=== PATIENT | female | born 1955 | race Caucasian/White ===

== ENCOUNTER → 2016-11-22 | Outpatient (CLI) | payer MEDICARE ==
--- NOTE | 2016-11-22 10:15 | FL ---
EXAMINATION TYPE: FL barium swallow DATE OF EXAM ORDERED: 11/22/2016 10:07 AM HISTORY: Remote lap band. COMPARISON: None. FINDINGS: The patient swallowed barium of these. There is prompt egress of barium from esophagus int o the stomach without significant holdup. There is no evidence of prolapse. IMPRESSION: STATUS POST LAP BAND.
[2016-11-22 10:33] VITALS: BP 159/98; PULSE 94; TEMP 97.9; BMI 35.4
--- NOTE | 2016-11-22 11:48 | P.HPBAR ---
Bariatric H&P - History & Physicial H&P Date: 11/22/16 History & Physicial: Visit/CC: follow up visit Patient initial contact: Initial weight: Initial weight in pounds: Height: 5 ft 5 in Initial BMI: Last weight: Current weight: 96.661 kg Current weight in pounds: 213.10 Current BMI: 35.4 [place] body weight (based on NIH guidelines): 56.699 kg Excess body weight loss: The patient is a 61 year-old F who presents for Bariatric Assessment. Patient presents today for follow-up. She's not been seen for 7 years. He has had chronic complaints of epigastric pain and right upper quadrant pain which radiates to her back. She has no fluid in her LAP-BAND. She's not had any significant weight loss. She was then removed. Past Medical History Past Medical History: COPD, CVA/TIA, Fibromyalgia, Hyperlipidemia, Hypertension , Seizure Disorder History of Any Multi-Drug Resistant Organisms: None Reported Past Surgical History: Adenoidectomy, Bariatric Surgery, Hysterectomy, Tonsillectomy Additional Past Surgical History / Comment(s): lap band 2010 Past Anesthesia/Blood Transfusion Reactions: No Reported Reaction Past Psychological History: No Psychological Hx Reported Smoking Status: Former smoker Additional Past Alcohol Use History / Comment(s): quit smoking three months ago Past Drug Use History: None Reported Surgical - Exam Vital Signs Temp Pulse BP 97.9 F 94 159/98 11/22/16 10:24 11/22/16 10:24 11/22/16 10:24 - General well developed, no distress - Eyes PERRL - ENT normal pinna - Neck no masses - Respiratory normal expansion - Cardiovascular Rhythm: regular - Abdomen Abdomen: soft, non tender Bariatric Assessment & Plan Plan: The patient LAP-BAND is empty. Her esophagram shows no evidence of obstruction to contrast. Patient will have a HIDA scan performed. She'll also be scheduled for EGD. Bariatric Checklist Checklist: Plan: Checklist: EGD: 1. Hiatal hernia: 2. H. Pylori: HgbA1c: Vitamin D: Smoking: Former smoker Primary care physician referral: dr joshua Psychiatry clearance: Cardiology clearance: Sleep study: Diet journal: VTE risk score: VTE risk level: Rehab needs at discharge:
== END | disposition home or self-care (01) ==
LOC: BARWHC3 09:08
PROVIDERS: ATTEND Surgery
DX: Z48.815 Encounter for surgical aftercare following surgery on the digestive system (principal); R13.10 Dysphagia, unspecified; Z87.891 Personal history of nicotine dependence; Z98.84 Bariatric surgery status
CPT/HCPCS: 74220; G0463; 99201; 99211

== ENCOUNTER → 2016-11-23 | Outpatient (CLI) | payer MEDICARE ==
--- NOTE | 2016-11-24 07:51 | NM ---
EXAMINATION TYPE: NM hepatobiliary w EF DATE OF EXAM: 11/23/2016 COMPARISON: NONE HISTORY: Gastroesophageal reflux disease and abdominal pain TECHNIQUE: After the intravenous administration of 5.4 mCi Tc 99m Mebrofenin hepatobiliary scintigrap hy is performed. Immediate images post injection. FINDINGS: There is satisfactory initial accumulation of tracer by the liver. The gallbladder is visualized wit hin 14 minutes. The small bowel activity is noted within 6 minutes. At one hour 8 ounces of oral en sure plus is given to mimic CCK and gallbladder ejection fraction is calculated at 35 %, at the level end of normal. Therefore there is no scintigraphic evidence of cystic or common bile duct obstructi on to suggest acute cholecystitis or gallbladder dyskinesia. IMPRESSION: Borderline normal gallbladder ejection fraction
== END | disposition home or self-care (01) ==
LOC: RADNMMAIN 15:10
PROVIDERS: ATTEND Surgery
DX: R10.9 Unspecified abdominal pain (principal)
CPT/HCPCS: 78226; A9537

== ENCOUNTER 2016-11-25 11:00 | Day surgery (SDC) | payer MEDICARE ==
[2016-11-24 10:29] VITALS: BMI 35.4
[~2016-11-25 11:00] MED LIST: LACTATED RINGERS 1,000 ML IV SCH
[2016-11-25] MEDS ORDERED: MIDAZOLAM 2 MG/2 ML VIAL ONE (11:32)
[2016-11-25] MEDS ORDERED: LIDOCAINE 1% INJ 10MG/ML (20 ML MDV) ONE (11:32)
[2016-11-25] MEDS ORDERED: PROPOFOL 10 MG/ML 20 ML VIAL IV ONE (11:32)
[2016-11-25] MEDS ORDERED: fentaNYL (PF) 50 MCG/ML 2 ML AMP ONE (11:32)
[2016-11-25 11:33] VITALS: RESP 16; TEMP 97.4
--- NOTE | 2016-11-25 11:46 | P.GSHP ---
History of Present Illness H&P Date: 11/25/16 Chief Complaint: Epigastric pain, gastritis This is a 7-year-old female who presents today for EGD. She's had previous complaints of epigastric pain. Patient history of LAP-BAND surgery. She had a recent HIDA scan which showed abnormal ejection fraction consistent with chronic cholecystitis. Past Medical History Past Medical History: COPD, CVA/TIA, Fibromyalgia, Hyperlipidemia, Hypertension , Seizure Disorder Additional Past Medical History / Comment(s): HAVING BACK PAIN, LAST SEIZURE 2014 History of Any Multi-Drug Resistant Organisms: None Reported Past Surgical History: Adenoidectomy, Bariatric Surgery, Hysterectomy, Tonsillectomy Additional Past Surgical History / Comment(s): lap band 2009 Past Anesthesia/Blood Transfusion Reactions: No Reported Reaction Smoking Status: Former smoker - Past Family History Father Family Medical History: Cancer Additional Family Medical History / Comment(s): PANCREATIC Mother Family Medical History: Cancer Medications and Allergies Home Medications Medication Instructions Recorded Confirmed Type Atenolol [Tenormin] 50 mg PO BID 03/14/14 11/25/16 History OXcarbazepine [Trileptal] 600 mg PO BID 03/14/14 11/25/16 History Phenytoin Sodium Extended 100 mg PO TID 03/14/14 11/25/16 History [Dilantin] Ciprofloxacin HCl [Cipro] 1 tab PO BID 11/23/16 11/25/16 History Cyclobenzaprine [Flexeril] 1 tab PO DIRECTED 11/23/16 11/25/16 History Famotidine [Pepcid] 1 tab PO BID 11/23/16 11/25/16 History HYDROcodone/APAP 10-325MG [[place] 1 tab PO DIRECTED 11/23/16 11/25/16 History 10-325] Meclizine [Antivert] 25 mg PO TID 11/23/16 11/25/16 History levETIRAcetam [Keppra] 500 mg PO BID 11/23/16 11/25/16 History Allergies Allergy/AdvReac Type Severity Reaction Status Date / Time No Known Allergies Allergy Verified 11/25/16 11:19 Surgical - Exam Vital Signs Temp Pulse Resp BP Pulse Ox 97.4 F L 86 16 116/81 92 L 11/25/16 11:33 11/25/16 11:33 11/25/16 11:33 11/25/16 11:33 11/25/16 11:33 - General well developed, no distress - Eyes PERRL - ENT normal pinna - Neck no masses - Respiratory normal expansion - Cardiovascular Rhythm: regular - Abdomen Abdomen: soft, non tender Assessment and Plan Plan: Gastritis. We'll perform EGD.
--- NOTE | 2016-11-25 11:51 | P.OP ---
Date of Procedure: 11/25/16 Preoperative Diagnosis: Gastritis Postoperative Diagnosis: Antral gastritis Gastric pouch LAP-BAND without evidence of inflammation or erosion Procedure(s) Performed: EGD Implants: Anesthesia: MAC Surgeon: Erlin Sidhu Pathology: other (Antrum) Condition: stable Indications for Procedure: Operative Findings: Description of Procedure: The patient's placed on the endoscopy table in the lateral position. She received IV sedation. The gastroscope some placed oropharynx and passed into the esophagus into the stomach. The scope was then placed through the pylorus. The first and second portion of the duodenum appeared normal. Scope was then brought back the antrum and this appeared mildly inflamed. A biopsy was performed. The scope was unretroflexed and remainder stomach appeared normal. The patient a previous Alejandro device this was without evidence of inflammation or erosion. The proximal gastric pouch appeared to be slightly dilated. The GE junction was at 47 is. The distal esophagus appeared normal. The proximal esophagusAppeared Normal. The scope was withdrawn for patient.
[2016-11-25 12:56] VITALS: BP 119/78; PULSE 70
== END 2016-11-25 13:16 | disposition home or self-care (01) ==
LOC: ORWHC2ENDO 11:00
PROVIDERS: ATTEND Surgery
DX: K29.70 Gastritis, unspecified, without bleeding (principal); K31.9 Disease of stomach and duodenum, unspecified; Z98.84 Bariatric surgery status; M79.7 Fibromyalgia; G40.909 Epilepsy, unspecified, not intractable, without status epilepticus; I10 Essential (primary) hypertension; E78.5 Hyperlipidemia, unspecified; Z79.899 Other long term (current) drug therapy; Z87.891 Personal history of nicotine dependence; Z86.73 Personal history of transient ischemic attack (TIA), and cerebral infarction without residual deficits
CPT/HCPCS: 88305; 88342; 43239; J2250; J2001; J3010; J2704

== ENCOUNTER 2016-12-08 07:41 | Day surgery (SDC) | payer MEDICARE ==
[2016-12-06 10:51] VITALS: BMI 31.6
[~2016-12-08 07:41] MED LIST changes: +DEXAMETHASONE SOD PHOSPHATE 10 MG/ML 1 ML VIAL IV ONE; +HEPARIN SODIUM,PORCINE 5,000 UNIT/ML 1 ML VIAL SQ ONE; +LIDOCAINE 1% 20 ML VIAL (10MG/ML) FOR IV START INTRADERMA PRN; +ONDANSETRON 4 MG/2 ML VIAL IVP ONE; +SCOPOLAMINE 1.5MG/72HR PATCH TRANSDERM ONE; +ceFAZolin 2 GM in SODIUM CHLORIDE 0.9% 100 ML IVPB ONE
[2016-12-08] MEDS ORDERED: LACTATED RINGERS 1,000 ML IV ONE ×2 (08:32→10:24)
--- NOTE | 2016-12-08 09:23 | P.GSHP ---
History of Present Illness H&P Date: 12/08/16 Chief Complaint: Chronic cholecystitis, right upper quadrant pain This a 7-year-old female who presents today for laparoscopic cholecystectomy. Patient's complaints of lower quadrant and epigastric pain. Her recent HIDA scan is abnormal ejection fraction consistent with chronic cholecystitis. - Constitutional Constitutional: Reports as per HPI Past Medical History Past Medical History: COPD, CVA/TIA, Fibromyalgia, Hyperlipidemia, Hypertension , Pneumonia, Seizure Disorder Additional Past Medical History / Comment(s): PT STATES WAS HOSPITALIZED FOR A WEEK AT AFTER EGD WAS DONE 11/25/16. AND THAT SHE WAS INSTRUCTED TO STOP CIPRO BY DR. LEE'S OFFICE. I CALLED DR. LEE'S OFFICE AND INFORMED FANY OF ABOVE INFORMATION THAT SHE WILL PASS ALONG TO DR. LEE. LAST KNOWN SEIZURE 2014 PER PT History of Any Multi-Drug Resistant Organisms: None Reported Past Surgical History: Adenoidectomy, Bariatric Surgery, Hysterectomy, Tonsillectomy Additional Past Surgical History / Comment(s): lap band 2009. EGD-11/25/16 Past Anesthesia/Blood Transfusion Reactions: No Reported Reaction Smoking Status: Former smoker - Past Family History Father Family Medical History: Cancer Medications and Allergies Home Medications Medication Instructions Recorded Confirmed Type Atenolol [Tenormin] 50 mg PO BID 03/14/14 12/08/16 History OXcarbazepine [Trileptal] 600 mg PO BID 03/14/14 12/06/16 History Phenytoin Sodium Extended 100 mg PO TID 03/14/14 12/06/16 History [Dilantin] Cyclobenzaprine [Flexeril] 1 tab PO DIRECTED 11/23/16 12/06/16 History Famotidine [Pepcid] 1 tab PO BID 11/23/16 12/06/16 History HYDROcodone/APAP 10-325MG [[place] 1 tab PO DIRECTED 11/23/16 12/06/16 History 10-325] Meclizine [Antivert] 25 mg PO TID 11/23/16 12/06/16 History levETIRAcetam [Keppra] 500 mg PO BID 11/23/16 12/06/16 History Allergies Allergy/AdvReac Type Severity Reaction Status Date / Time No Known Allergies Allergy Verified 12/06/16 10:45 Surgical - Exam Vital Signs Temp Pulse Resp BP Pulse Ox 98.2 F 82 18 139/77 95 12/08/16 08:11 12/08/16 08:11 12/08/16 08:11 12/08/16 08:11 12/08/16 08:11 - General well developed, no distress - Eyes PERRL - ENT normal pinna - Neck no masses - Respiratory normal expansion - Cardiovascular Rhythm: regular - Abdomen Mild right upper quadrant pain Abdomen: soft Assessment and Plan Plan: Chronic cholecystitis we'll perform laparoscopic cholecystectomy.
[2016-12-08] MEDS ORDERED: GLYCOPYRROLATE 0.2 MG/ML 2 ML VIAL ONE (09:37)
[2016-12-08] MEDS ORDERED: SUCCINYLCHOLINE CHLORIDE 100 MG/5 ML SYR IV ONE (09:37)
[2016-12-08] MEDS ORDERED: ROCURONIUM BROMIDE 10 MG/ML 10 ML VIAL IV ONE (09:37)
[2016-12-08] MEDS ORDERED: MIDAZOLAM 2 MG/2 ML VIAL ONE (09:37)
[2016-12-08] MEDS ORDERED: NEOSTIGMINE 1 MG/ML 10 ML VIAL ONE (09:37)
[2016-12-08] MEDS ORDERED: LIDOCAINE 1% INJ 10MG/ML (20 ML MDV) ONE (09:37)
[2016-12-08] MEDS ORDERED: PROPOFOL 10 MG/ML 20 ML VIAL IV ONE (09:37)
[2016-12-08] MEDS ORDERED: fentaNYL (PF) 50 MCG/ML 2 ML AMP ONE (09:37)
[2016-12-08] MEDS ORDERED: LIDOCAINE 1%-EPI 1:100,000 20 ML VIAL SQ ONE ×2 (09:56→10:13)
[2016-12-08 10:35] VITALS: TEMP 97.1
[2016-12-08] MEDS: HYDROmorphone 1 MG/ML 1 ML SYRINGE IVP PRN ×3 (10:38→10:54)
[2016-12-08] MEDS ORDERED: KETOROLAC 30 MG/ML 1 ML VIAL IVP ONE (10:39)
[2016-12-08 10:53] VITALS: RESP 16
--- NOTE | 2016-12-08 11:04 | P.OP ---
Date of Procedure: 12/08/16 Preoperative Diagnosis: Cholecystitis Postoperative Diagnosis: Cholecystitis Procedure(s) Performed: Laparoscopic cholecystectomy Implants: Anesthesia: ALDAIR Surgeon: Erlin Sidhu Pathology: other (Gallbladder) Condition: stable Disposition: PACU Indications for Procedure: Operative Findings: Description of Procedure: The patient was placed on the operating table. The patient received a general endotracheal tube anesthesia. The patients abdomen was prepped and draped in the usual sterile fashion. Through an infraumbilical stab incision, the fascia of the anterior abdominal wall was grasped with a pair of Kochers and then the Veress needle was placed in the peritoneal cavity. Position of the Veress needle was confirmed with positive drop test. The abdomen was then insufflated. After adequate insufflation, the 10 mm trocar was placed in the peritoneal cavity. Following this the laparoscope was placed in the peritoneal cavity. The patient was placed in the head-up, right side up position and then a 5 mm trocar was placed in the right lateral and right subcostal position under direct visualization. A 8 mm trocar was placed in the epigastric position. The gallbladder was grasped in the fundus and infundibulum. Traction on the gallbladder was placed in the lateral and the cephalad positions. The triangle of Calot was visualized.. The cystic duct was bluntly dissected until the union of the cystic duct and common bile duct was seen. The cystic duct was then divided and sealed with the Harmonic scissors. A PDS Endoloop was then placed throughout the cystic duct stump. The cystic artery divided and sealed with the Harmonic scissors. The gallbladder was then removed from the liver bed using Harmonic scissors. The gallbladder was then extracted through the epigastric port site. Operative field was checked for any bleeding spots and Harmonic scissors was used to coagulate the liver bed. The abdomen was irrigated. The trocars were removed. The skin was closed using interrupted 3-0 Vicryl suture. Dermabond dressing were applied. The patient tolerated the procedure well.
[2016-12-08 12:47] VITALS: BP 116/81; PULSE 76
== END 2016-12-08 13:29 | disposition home or self-care (01) ==
LOC: OR 07:41
PROVIDERS: ATTEND Surgery
DX: K81.1 Chronic cholecystitis (principal); J44.9 Chronic obstructive pulmonary disease, unspecified; M79.7 Fibromyalgia; E78.5 Hyperlipidemia, unspecified; I10 Essential (primary) hypertension; G40.909 Epilepsy, unspecified, not intractable, without status epilepticus; Z98.84 Bariatric surgery status; Z86.73 Personal history of transient ischemic attack (TIA), and cerebral infarction without residual deficits; Z79.891 Long term (current) use of opiate analgesic; Z79.899 Other long term (current) drug therapy; Z87.891 Personal history of nicotine dependence
CPT/HCPCS: 88304; 47562; J2250; J1644; J1100; J2710; J0690; J2405; J2001; J3010; J1885; J1170; J0330; J2704

== ENCOUNTER 2016-12-09 15:08 | Observation (INO) | payer MEDICARE ==
[2016-12-09] MEDS ORDERED: NALOXONE 0.4 MG/ML 1 ML VIAL IV PRN (15:52)
--- NOTE | 2016-12-09 15:52 | ED ---
General Adult HPI - General Chief complaint: Syncope Stated complaint: Hypotension Time Seen by Provider: 12/09/16 15:40 Source: patient Mode of arrival: EMS Limitations: no limitations - History of Present Illness Initial comments: Patient is a 61-year-old female with past medical history of oxygen-dependent COPD and epilepsy, patient underwent an elective nonemergent lap cholecystectomy yesterday with Dr. liam amin. Patient reports she was feeling well postoperatively and return home. She reports that this morning she was standing at her kitchen sink doing dishes when she began to feel very lightheaded, her son commented on the fact that she was leaning over supporting herself with the countertop. She reports she then turned around and walk towards her son at which time she became very dizzy and fell backwards, he helped her back to her feet and she ambulated to the restroom where she had another episode in which she became very dizzy and fell to the ground. She denies any loss of consciousness either of these episodes. Ambulance was called and the patient was transported to an outpatient Hospital where she was found to be hypotensive with a blood pressure of 83/55. A full workup was obtained at the outside hospital and revealed no leukocytosis, white blood cell count was 8.7, hemoglobin was 10.4. BMP was unremarkable. Lactic acid was noted to be elevated at 3.5. Patient was given 2 L fluid bolus with minimal improvement in her blood pressure, a third liter was given and patient's blood pressure improved. Patient reports she is feeling much better after the IV fluids. She denies any history of syncopal episodes. She does not feel that these episodes were seizure-like if she had no postictal state and she does not have a history of these type episodes. Orts that she is on chronic narcotics for her fibromyalgia , she states she has taken 2 [place] today. She states that her pain upon arrival was 0. She states that her abdominal pain has been less today than it was further 2 weeks leading up to the surgery. She denies any fevers, chills, nausea or vomiting. Denies any chest pain, she reports chronic shortness of breath which is no worse and today from her baseline. She is currently wearing 3 L nasal cannula. - Related Data Home Medications Medication Instructions Recorded Confirmed Atenolol [Tenormin] 50 mg PO BID 03/14/14 12/08/16 OXcarbazepine [Trileptal] 600 mg PO BID 03/14/14 12/06/16 Phenytoin Sodium Extended 100 mg PO TID 03/14/14 12/06/16 [Dilantin] Cyclobenzaprine [Flexeril] 1 tab PO DIRECTED 11/23/16 12/06/16 Famotidine [Pepcid] 1 tab PO BID 11/23/16 12/06/16 HYDROcodone/APAP 10-325MG [[place] 1 tab PO DIRECTED 11/23/16 12/06/16 10-325] Meclizine [Antivert] 25 mg PO TID 11/23/16 12/06/16 levETIRAcetam [Keppra] 500 mg PO BID 11/23/16 12/06/16 Previous Rx's Medication Instructions Recorded Docusate [Colace] 100 mg PO BID #20 capsule 12/08/16 HYDROcodone/APAP 7.5-325MG [[place] 1 each PO Q4H PRN #60 tab 12/08/16 7.5] Allergies Allergy/AdvReac Type Severity Reaction Status Date / Time No Known Allergies Allergy Verified 12/09/16 15:23 Review of Systems ROS Statement: Those systems with pertinent positive or pertinent negative responses have been documented in the HPI. ROS Other: All systems not noted in ROS Statement are negative. Constitutional: Reports: weakness. Denies: fever, chills Eyes: Reports: other (L vision prior to passing out) ENT: Denies: throat pain Respiratory: Reports: dyspnea (Chronic shortness of breath, no worsened today). Denies: cough Cardiovascular: Denies: chest pain, palpitations Endocrine: Reports: fatigue Gastrointestinal: Denies: abdominal pain, nausea, vomiting Genitourinary: Denies: urgency, dysuria, frequency Musculoskeletal: Reports: back pain (Back pain for 2 weeks duration, improved postoperatively) Skin: Reports: other (surgical incisions on abdomen) Neurological: Reports: weakness, other (Lightheadedness, syncope). Denies: headache Psychiatric: Denies: anxiety, depression Hematological/Lymphatic: Denies: easy bleeding, easy bruising Past Medical History Past Medical History: COPD, CVA/TIA, Fibromyalgia, Hyperlipidemia, Hypertension , Pneumonia, Seizure Disorder Additional Past Medical History / Comment(s): PT STATES WAS HOSPITALIZED FOR A WEEK AT [facility] AFTER EGD WAS DONE 11/25/16. AND THAT SHE WAS INSTRUCTED TO STOP CIPRO BY DR. LEE'S OFFICE. I CALLED DR. LEE'S OFFICE AND INFORMED FANY OF ABOVE INFORMATION THAT SHE WILL PASS ALONG TO DR. LEE. LAST KNOWN SEIZURE 2014 PER PT History of Any Multi-Drug Resistant Organisms: None Reported Past Surgical History: Adenoidectomy, Bariatric Surgery, Hysterectomy, Tonsillectomy Additional Past Surgical History / Comment(s): lap band 2009. EGD-11/25/16 Past Anesthesia/Blood Transfusion Reactions: No Reported Reaction Past Psychological History: No Psychological Hx Reported Smoking Status: Former smoker Past Alcohol Use History: None Reported Past Drug Use History: None Reported - Past Family History Father Family Medical History: Cancer Mother Family Medical History: Cancer General Exam Limitations: no limitations General appearance: alert, in no apparent distress Head exam: Present: atraumatic, normocephalic Eye exam: Present: PERRL ENT exam: Present: normal exam, normal oropharynx, mucous membranes moist Neck exam: Present: normal inspection Respiratory exam: Absent: respiratory distress, rhonchi, stridor, chest wall tenderness, accessory muscle use Cardiovascular Exam: Present: regular rate, normal rhythm GI/Abdominal exam: Present: tenderness (Tenderness at the incision sites, no tenderness to palpation. Well-healing surgical incisions), normal bowel sounds. Absent: guarding, rebound, rigid Rectal exam: Present: deferred Extremities exam: Present: normal inspection, full ROM, normal capillary refill. Absent: tenderness, pedal edema, joint swelling, calf tenderness Back exam: Absent: CVA tenderness (R), CVA tenderness (L) Neurological exam: Present: alert, oriented X3, CN II-XII intact Psychiatric exam: Present: normal affect, normal mood Skin exam: Present: warm, dry (Well-healing surgical incisions and abdomen) Course Vital Signs 12/09/16 15:17 Temperature 97.5 F L Pulse Rate 76 Respiratory 18 Rate Blood Pressure 103/61 O2 Sat by Pulse 96 Oximetry - Reevaluation(s) Reevaluation #1: Patient was updated on plan for admission, patient agreeable. 12/09/16 16:01 Medical Decision Making - Medical Decision Making Patient was seen and evaluated History was obtained from the patient, outside medical records Patient with multiple syncopal episodes prior to arrival in an outside hospital , labs outside hospital revealed mild anemia and lactic acidosis Troponin was negative at outside hospital Patient blood pressure is responded to 3 L fluid bolus We will plan to place the patient in observation with telemetry monitoring for multiple syncopal episodes this is likely related to fluid depletion as patient has responded appropriately to IV fluids Patient care was discussed with Dr. Braga excepts the patient for syncope and lactic acidosis Patient care was discussed with Dr. Sin who appreciates the consult will evaluate the patient, advised that the patient does not have an acute abdomen is not experience any postoperative pain. Admission orders were placed, patient placed in observation for syncope and lactic acidosis. Disposition Clinical Impression: Syncope due to orthostatic hypotension Disposition: ADMITTED IP TO THIS HOSP Condition: Good Referrals: Sonia Nielson MD [Primary Care Provider] - 1-2 days
[2016-12-09] MEDS: HYDROcodone/APAP 5-325MG 1 EACH TAB PO PRN ×2 (16:23→20:27)
[2016-12-09] MEDS: SODIUM CHLORIDE 0.9% 1,000 ML IV SCH (16:25)
[2016-12-09] MEDS ORDERED: NAPROXEN 250 MG TAB PO PRN (20:11)
[2016-12-09] MEDS ORDERED: ONDANSETRON 4 MG/2 ML VIAL IVP PRN (20:37)
[2016-12-09] MEDS: PREGABALIN 50 MG CAP PO SCH (20:58)
[2016-12-09] MEDS: levETIRAcetam 500 MG TAB PO SCH (20:58)
[2016-12-09] MEDS: OXcarbazepine 300 MG TAB PO SCH (20:58)
[2016-12-09] MEDS: ATORVASTATIN 20 MG TAB PO SCH (20:59)
[2016-12-09] MEDS: ATENOLOL 50 MG TAB PO SCH (20:59)
[2016-12-09] MEDS: FAMOTIDINE 20 MG TAB PO SCH (20:59)
[2016-12-09] MEDS ORDERED: FLUoxetine HCL 20 MG CAP PO SCH (21:00)
[2016-12-10 06:48] LABS: Anisocytosis Slight; Basophils % (A) 0 %; CH 28.3; CHCM 31.7; Eosinophils # (A) 0.1 k/uL (0-0.7); Eosinophils % (A) 1 %; HCT 30.3 % (34.0-46.0); HDW 3.22; HGB 9.9 gm/dL (11.4-16.0); Hypochromasia Slight; Luc # (Auto) 0.09; Luc % (Auto) 1; Lymphocytes # (A) 1.8 k/uL (1.0-4.8); Lymphocytes % (A) 15 %; MCH 29.2 pg (25.0-35.0); MCHC 32.5 g/dL (31.0-37.0); MCV 89.9 fL (80.0-100.0); Mean Platelet Volume 6.9; Monocytes # (A) 0.8 k/uL (0-1.0); Monocytes % (A) 7 %; Neutrophils % (A) 76 %; RBC 3.38 m/uL (3.80-5.40); RDW 16.4 % (11.5-15.5); WBC 11.8 k/uL (3.8-10.6); WBC (Perox) 12.78
[2016-12-10 07:15] LABS: Anion Gap 6 mmol/L; Blood Urea Nitrogen 10 mg/dL (7-17); Calcium 8.4 mg/dL (8.4-10.2); Carbon Dioxide 23 mmol/L (22-30); Chloride 103 mmol/L (98-107); Glucose 87 mg/dL (74-99); Non-African American GFR(MDRD) >60 (>60 ml/min/1.73 sqM); Potassium 4.2 mmol/L (3.5-5.1); Sodium 132 mmol/L (137-145)
[2016-12-10] MEDS: SODIUM CHLORIDE 0.9% 1,000 ML IV SCH ×2 (07:49→19:56)
[2016-12-10] MEDS: ENOXAPARIN 40 MG/0.4 ML SYRINGE SQ SCH (10:41)
--- NOTE | 2016-12-10 10:47 | P.GSCN ---
History of Present Illness Consult date: 12/10/16 Reason for Consult: Postop the weakness and syncopal episode. History of present illness: I am seeing the patient in consultation for Dr. Sidhu. She underwent a laparoscopic cholecystectomy 2 days ago. She did fine in the immediate postoperative period tolerated a diet and discharged home. Yesterday however she had 2 episodes where she felt very weak and almost passed out but maintain a consciousness. Son was at home. He called EMS and she was transferred to the hospital. She was found to be hypo-tensive in the ER. Clark to be somewhat dehydrated. She states however that she's been eating and drinking well all along after her surgery. Does have a history of seizure disorder last time was in . Does take Dilantin regularly. Also antivert. SHe responded well to IV fluid boluses and with return of blood pressure to normal. She was admitted for observation. She denied any abdominal pain nausea or vomiting. In fact she states she is absolutely pain-free now from her lap di.. This morning after regular breakfast she did have an episode of vomiting. She states she vomits intermittently since she had lap band surgery several years ago. Past history. Well-documented. Positive for COPD oxygen dependent. Lap band surgery hysterectomy TNA EGD. Also has a history of fibromyalgia hypertension seizure disorder CVA reflux disease back pain. Medications as listed including Tenormin Antivert episode Flexeril Dilantin Tenormin Colace no cervical every day long-term 7.5 mg. The ALLERGIES none known. Social history well-documented positive for smoking in the past. System review reviewed as above. No chest pain. No headache. No urinary symptoms. On examination the patient is awake alert the sudden up in bed. In no acute distress. Temperature is normal. Hydration is satisfactory. Vitals are normal. She is anicteric. Her abdomen is quite soft. Trocar sites are clean without evidence of infection. Hardly any tenderness from her lap di surgery 2 days ago. No mass or organomegaly no evidence of any ascites or hernia. Labs were reviewed. WBC is normal. Hemoglobin is 10.4. Lactic acid is elevated to 3.5 probably secondary to dehydration. Impression. Syncopal episode may be secondary to dehydration and hypotension. History of seizure disorder and dizziness. COPD Hypertension. Intermittent vomiting secondary to lap band surgery. No evidence of any acute the complications from her lap di surgery 2 days ago Recommendation. Continued supportive care. Liquid to soft diet. We'll obtain abdominal films to rule out obstruction. Past Medical History Past Medical History: COPD, CVA/TIA, Fibromyalgia, Hyperlipidemia, Hypertension , Pneumonia, Seizure Disorder Additional Past Medical History / Comment(s): 12-08-16 c/o dizziness/fall. P . has had pne 3 times. LAST KNOWN SEIZURE 2014 PER PT History of Any Multi-Drug Resistant Organisms: None Reported Past Surgical History: Adenoidectomy, Bariatric Surgery, Hysterectomy, Tonsillectomy Additional Past Surgical History / Comment(s): lap band 2010. EGD-11/25/16, lap choley Past Anesthesia/Blood Transfusion Reactions: No Reported Reaction Additional Past Anesthesia/Blood Transfusion Reaction / Comm: clausterphobia Smoking Status: Former smoker - Past Family History Father Family Medical History: Cancer Mother Family Medical History: Cancer Medications and Allergies Home Medications Medication Instructions Recorded Confirmed Type Atenolol [Tenormin] 100 mg PO HS 03/14/14 12/09/16 History Cyclobenzaprine [Flexeril] 10 mg PO HS PRN 11/23/16 12/09/16 History Famotidine [Pepcid] 40 mg PO HS 11/23/16 12/09/16 History levETIRAcetam [Keppra] 1,000 mg PO HS 11/23/16 12/09/16 History Atorvastatin [Lipitor] 20 mg PO HS 12/09/16 12/09/16 History Docusate [Colace] 200 mg PO HS 12/09/16 12/09/16 History FLUoxetine HCL [PROzac] 20 mg PO HS 12/09/16 12/09/16 History HYDROcodone/APAP 7.5-325MG [[place] 1 tab PO Q4H PRN 12/09/16 12/09/16 History 7.5] Naproxen 1,000 mg PO HS PRN 12/09/16 12/09/16 History OXcarbazepine [Trileptal] 1,200 mg PO HS 12/09/16 12/09/16 History Pregabalin [Lyrica] 450 mg PO HS 12/09/16 12/09/16 History Allergies Allergy/AdvReac Type Severity Reaction Status Date / Time No Known Allergies Allergy Verified 12/09/16 16:12 Surgical - Exam Vital Signs Temp Pulse Resp BP Pulse Ox 97.5 F L 76 18 103/61 96 12/09/16 15:17 12/09/16 15:17 12/09/16 15:17 12/09/16 15:17 12/09/16 15:17 Results - Labs 12/10/16 06:12 12/10/16 06:12 Abnormal Lab Results - Last 24 Hours (Table) 12/10/16 12/10/16 Range/Units 06:12 06:12 WBC 11.8 H (3.8-10.6) k/uL RBC 3.38 L (3.80-5.40) m/uL Hgb 9.9 L (11.4-16.0) gm/dL Hct 30.3 L (34.0-46.0) % RDW 16.4 H (11.5-15.5) % Neutrophils # 9.0 H (1.3-7.7) k/uL Sodium 132 L (137-145) mmol/L Diabetes panel 12/10/16 Range/Units 06:12 Sodium 132 L (137-145) mmol/L Potassium 4.2 (3.5-5.1) mmol/L Chloride 103 (98-107) mmol/L Carbon Dioxide 23 (22-30) mmol/L BUN 10 (7-17) mg/dL Creatinine 0.60 (0.52-1.04) mg/dL Glucose 87 (74-99) mg/dL Calcium 8.4 (8.4-10.2) mg/dL Calcium panel 12/10/16 Range/Units 06:12 Calcium 8.4 (8.4-10.2) mg/dL Pituitary panel 12/10/16 Range/Units 06:12 Sodium 132 L (137-145) mmol/L Potassium 4.2 (3.5-5.1) mmol/L Chloride 103 (98-107) mmol/L Carbon Dioxide 23 (22-30) mmol/L BUN 10 (7-17) mg/dL Creatinine 0.60 (0.52-1.04) mg/dL Glucose 87 (74-99) mg/dL Calcium 8.4 (8.4-10.2) mg/dL Adrenal panel 07/15/17 Range/Units 06:12 Sodium 132 L (137-145) mmol/L Potassium 4.2 (3.5-5.1) mmol/L Chloride 103 (98-107) mmol/L Carbon Dioxide 23 (22-30) mmol/L BUN 10 (7-17) mg/dL Creatinine 0.60 (0.52-1.04) mg/dL Glucose 87 (74-99) mg/dL Calcium 8.4 (8.4-10.2) mg/dL
--- NOTE | 2016-12-10 13:13 | XR ---
EXAMINATION TYPE: XR abdomen acute w cxr DATE OF EXAM: 12/10/2016 CLINICAL HISTORY: Nausea and vomiting, history of cholecystectomy 2 days ago. TECHNIQUE: Single frontal view of chest is obtained. Supine and upright views of the abdomen are acq uired. COMPARISON: Chest x-ray September 09, 2016.. FINDINGS: There is chronic parenchymal change without suspicious focal airspace opacity, pleural effu maria e, or pneumothorax seen bilaterally. Cardiac silhouette size appears stable and within normal avendano its. Osseous structures are demineralized. Lap band device epigastric region is redemonstrated Gas is noted in nondistended small bowel loops. Gas and fecal material is seen in nondistended colon. Slightly prominent gas-filled colonic loops in the midabdomen are seen. No pneumoperitoneum, visceromegaly, or suspicious calcification is identifi ed. The osseous structures are intact. IMPRESSION: 1. No acute pulmonary process. 2. Overall nonspecific but likely nonobstructive bowel gas pattern.
[2016-12-10] MEDS ORDERED: BISACODYL 10 MG SUPP RECTAL STA (13:58)
--- NOTE | 2016-12-10 16:57 | XR ---
EXAMINATION TYPE: XR chest 1V DATE OF EXAM: 12/10/2016 CLINICAL HISTORY: Rule out pneumonia, abnormal x-ray earlier today. TECHNIQUE: Single lateral view of the chest is obtained. COMPARISON: Chest x-ray from earlier today and older x-ray September 09, 2016 FINDINGS: Chronic parenchymal change is redemonstrated without suspicious focal airspace opacity or pleural effusion present. Osseous structures are demineralized. There is moderate to severe compressi on type fracture deformity at roughly T8 level noted. Low suspected chronic is new from September 09 stud y. IMPRESSION: Chronic parenchymal changes without suspicious acute infiltrate. Moderate to advanced com pression type fracture deformity T8 level noted new from August.
--- NOTE | 2016-12-10 18:14 | P.HPIM ---
History of Present Illness H&P Date: 12/10/16 Chief Complaint: Near syncope This is a 61-year-old patient followed by Dr. Nielson who underwent laparoscopic cholecystectomy by 2 days ago. Patient since left the hospital and not be feeling well hardly eating, having nausea and some vomiting, only drinking some coffee. Feeling tired and rundown patient was becoming more and more dizzy and went out shopping, and nearly passed out. No headaches, no double vision, no focal weakness. Feeling tired and rundown, a lot of nausea, abdomen felt distended and not had a bowel movement since her surgery no flatus , has admitted with the same. Significant past medical history: COPD, TIA, fibromyalgia, hyperlipidemia, hypertension, seizure disorder, osteoarthritis. Review of Systems GEN.: Tired EYES: None HEENT: None NECK: None RESPIRATORY: Shortness of breath CARDIOVASCULAR: None GASTROINTESTINAL: As above GENITOURINARY: [None] MUSCULOSKELETAL: Pain in the joint LYMPHATICS: [None] HEMATOLOGICAL: [None] PSYCHIATRY: Anxious NEUROLOGICAL: [None] Past Medical History Past Medical History: COPD, CVA/TIA, Fibromyalgia, Hyperlipidemia, Hypertension , Pneumonia, Seizure Disorder Additional Past Medical History / Comment(s): 12-08-16 c/o dizziness/fall. P . has had pne 3 times. LAST KNOWN SEIZURE 2014 PER PT History of Any Multi-Drug Resistant Organisms: None Reported Past Surgical History: Adenoidectomy, Bariatric Surgery, Hysterectomy, Tonsillectomy Additional Past Surgical History / Comment(s): lap band 2009. EGD-11/25/16, lap choley Past Anesthesia/Blood Transfusion Reactions: No Reported Reaction Additional Past Anesthesia/Blood Transfusion Reaction / Comment(s): clausterphobia Smoking Status: Former smoker Additional History: Patient smoked a pack-a-day for 44 years, stopped about 2 months. Lives with her son no alcohol - Past Family History Father Family Medical History: Cancer Mother Family Medical History: Cancer Medications and Allergies Home Medications Medication Instructions Recorded Confirmed Type Atenolol [Tenormin] 100 mg PO HS 03/14/14 12/09/16 History Cyclobenzaprine [Flexeril] 10 mg PO HS PRN 11/23/16 12/09/16 History Famotidine [Pepcid] 40 mg PO HS 11/23/16 12/09/16 History levETIRAcetam [Keppra] 1,000 mg PO HS 11/23/16 12/09/16 History Atorvastatin [Lipitor] 20 mg PO HS 12/09/16 12/09/16 History Docusate [Colace] 200 mg PO HS 12/09/16 12/09/16 History FLUoxetine HCL [PROzac] 20 mg PO HS 12/09/16 12/09/16 History HYDROcodone/APAP 7.5-325MG [[place] 1 tab PO Q4H PRN 12/09/16 12/09/16 History 7.5] Naproxen 1,000 mg PO HS PRN 12/09/16 12/09/16 History OXcarbazepine [Trileptal] 1,200 mg PO HS 12/09/16 12/09/16 History Pregabalin [Lyrica] 450 mg PO HS 12/09/16 12/09/16 History Allergies Allergy/AdvReac Type Severity Reaction Status Date / Time No Known Allergies Allergy Verified 12/09/16 16:12 Physical Exam Vitals: Vital Signs Temp Pulse Pulse Resp BP BP Pulse Ox 12/10/16 16:00 98.1 F 82 18 94/54 93 L 12/10/16 12:00 98.0 F 79 18 117/74 94 L 12/10/16 08:00 98.2 F 80 18 143/91 97 12/10/16 04:00 98.1 F 69 18 103/53 98 12/10/16 00:00 18 12/09/16 20:00 18 12/09/16 19:10 97.5 F L 63 18 94/58 98 Intake and Output VITAL SIGNS: Reviewed. BMI noted GENERAL: Average built, laying in bed tired appearing. EYES: Pupils equal. Conjunctiva normal. HEENT: External appearance of nose and ears normal, oral cavity grossly normal. NECK: JVD not raised; masses not palpable. HEART: First and second heart sounds are normal; no edema. LUNGS: Respiratory rate normal; decreased breath sounds, some wheezing. ABDOMEN: Soft, distended, mild tenderness, however hyperactive bowel sounds no guarding rigidity liver spleen not palpable, no masses palpable. LYMPHATICS: No lymph nodes palpable in the axilla and neck. PSYCH: Alert and oriented x3; mood and affect anxious appearingl. NEUROLOGICAL: Cranial nerves grossly intact; no facial asymmetry, power and sensation grossly intact. Results CBC & Chem 7: 12/10/16 06:12 12/10/16 06:12 Labs: White count 11.8, hemoglobin 9.9, potassium 4.2, renal function normal Acute abdominal series-'s prominent gas patent Chest x-ray-some chronic findings Assessment and Plan Plan: Assessment: -Near-syncope from patient being dehydrated has patient not eating for to 3 days and having nausea vomiting, post surgically -Possibly early ileus postoperative from recent cholecystectomy -COPD in an ex-smoker -Chronic fibromyalgia -Hyperlipidemia -Essential hypertension -Chronic epilepsy -Primary osteoarthritis of multiple joints Plan: Dr. Herbert from general surgery will be consulted. Patient remained nothing by mouth, and clear liquids if okay with them. IV fluids are to be given. Home medications to be reviewed. Lovenox for DVT prophylaxis. Care was discussed with the patient. Questions were answered.
[2016-12-10] MEDS: HYDROcodone/APAP 5-325MG 1 EACH TAB PO PRN (19:54)
[2016-12-10] MEDS: PREGABALIN 50 MG CAP PO SCH (19:55)
[2016-12-10] MEDS: levETIRAcetam 500 MG TAB PO SCH (19:55)
[2016-12-10] MEDS: OXcarbazepine 300 MG TAB PO SCH (19:55)
[2016-12-10] MEDS: FAMOTIDINE 20 MG TAB PO SCH (19:56)
[2016-12-10] MEDS: ATORVASTATIN 20 MG TAB PO SCH (19:56)
[2016-12-10] MEDS: ATENOLOL 50 MG TAB PO SCH (19:56)
[2016-12-11 07:35] LABS: Anisocytosis Slight; Basophils % (A) 1 %; CH 28.8; CHCM 31.7; Eosinophils # (A) 0.2 k/uL (0-0.7); Eosinophils % (A) 3 %; HCT 29.2 % (34.0-46.0); HDW 3.21; HGB 9.1 gm/dL (11.4-16.0); Hypochromasia Slight; Luc # (Auto) 0.12; Luc % (Auto) 2; Lymphocytes # (A) 1.6 k/uL (1.0-4.8); Lymphocytes % (A) 29 %; MCH 28.5 pg (25.0-35.0); MCHC 31.2 g/dL (31.0-37.0); MCV 91.4 fL (80.0-100.0); Mean Platelet Volume 6.8; Monocytes # (A) 0.5 k/uL (0-1.0); Monocytes % (A) 9 %; Neutrophils # (A) 3.1 k/uL (1.3-7.7); Neutrophils % (A) 56 %; RDW 16.5 % (11.5-15.5); WBC 5.4 k/uL (3.8-10.6); WBC (Perox) 5.46
[2016-12-11 07:43] LABS: Anion Gap 5 mmol/L; Blood Urea Nitrogen 6 mg/dL (7-17); Calcium 7.7 mg/dL (8.4-10.2); Carbon Dioxide 26 mmol/L (22-30); Chloride 99 mmol/L (98-107); Glucose 75 mg/dL (74-99); Non-African American GFR(MDRD) >60 (>60 ml/min/1.73 sqM); Potassium 4.2 mmol/L (3.5-5.1); Sodium 130 mmol/L (137-145)
[2016-12-11] MEDS: HYDROcodone/APAP 5-325MG 1 EACH TAB PO PRN ×3 (08:30→20:44)
[2016-12-11] MEDS: ENOXAPARIN 40 MG/0.4 ML SYRINGE SQ SCH (08:30)
--- NOTE | 2016-12-11 09:34 | P.PN ---
Progress Note - Text The patient is stable. Still had the episodes of emesis the yesterday. Apparently has been eating a bit the too fast . She feels hungry this morning. She would like to try something better to eat. On examination the patient is awake alert afebrile. Breathing a little more comfortably. Vitals are stable. Abdomen is quite the. Minimal tenderness around her trocar sites. No guarding or rebound no mass or organomegaly noted. No infection. Abdominal x-ray shows a nonspecific bowel gas pattern with no evidence of obstruction or ileus. Impression progressive improvement status post the lap di 3 days ago. No evidence of any significant intra-abdominal infection. History of bariatric surgery. Recommendation. We will try her on a soft diet. Small frequent meals. Encourage ambulation.
[2016-12-11] MEDS: SODIUM CHLORIDE 0.9% 1,000 ML IV SCH (12:12)
[2016-12-11] MEDS ORDERED: IPRATROPIUM-ALBUTEROL 3 ML NEB INHALATION PRN (12:33)
[2016-12-11] MEDS: guaiFENesin 600 MG TABLET.ER PO SCH ×2 (16:49→21:23)
[2016-12-11] MEDS: IPRATROPIUM-ALBUTEROL 3 ML NEB INHALATION SCH ×2 (17:18→20:18)
[2016-12-11] MEDS: OXcarbazepine 300 MG TAB PO SCH (20:03)
[2016-12-11] MEDS: ATORVASTATIN 20 MG TAB PO SCH (20:03)
[2016-12-11] MEDS: levETIRAcetam 500 MG TAB PO SCH ×2 (20:03→20:04)
[2016-12-11] MEDS: FAMOTIDINE 20 MG TAB PO SCH (20:04)
[2016-12-11] MEDS: ATENOLOL 50 MG TAB PO SCH (20:04)
[2016-12-11] MEDS ORDERED: PREGABALIN 50 MG CAP PO SCH (21:00)
[2016-12-11] MEDS ORDERED: PREGABALIN 100 MG CAP PO SCH (21:00)
--- NOTE | 2016-12-12 04:53 | PN ---
DATE OF SERVICE: 12/11/2016 PRESENTING COMPLAINT: Cough, short of breath. INTERVAL HISTORY: This is a patient who presented with near syncope, felt to be from getting dehydrated. Patient just had a cholecystectomy. Patient is somewhat congested in the chest, coughing up sputum, but goes on to swallow the same. Did tolerate her diet. The patient has been advanced to soft food. The patient is suspected to have possible early ileus when she had some in. Review of systems done for constitutional, cardiovascular, GI, pulmonary; relevant findings as above. Current medications are reviewed that include DuoNeb. On exam, temperature 97.4, pulse 73, respirations 18, blood pressure 124/75, pulse ox 98% on 2 L. GENERAL APPEARANCE: Sitting up, not in distress. EYES: Pupils equal. Conjunctivae normal. NECK: JVD not raised. Mass not palpable. HENT: The patient has got a small hole in the ceiling of the oral roof. RESPIRATORY: Effort normal. LUNGS: Decreased breath sounds. Expiratory crackles. ABDOMEN: Soft.Minimal tenderness. Bowel sounds are present. PSYCHIATRY: Alert and oriented x3. Mood and affect slightly anxious appearing. INVESTIGATIONS: White count 5.4, hemoglobin 9.1. Potassium 4.2, sodium 130. Chest x-ray shows some chronic changes. ASSESSMENT: 1. Near syncope from patient being dehydrated, not eating for 3 days with nausea and vomiting present on admission. 2. Status post early ileus postoperative from earlier cholecystectomy. 3. Chronic obstructive pulmonary disease exacerbation in an ex-smoker. 4. Chronic fibromyalgia. 5. Hyperlipidemia. 6. Essential hypertension. 7. Chronic epilepsy. 8. Primary osteoarthritis multiple joints. PLAN: Patient will be switched from p.r.n. to scheduled nebulized bronchodilators. Will also add some Mucinex. Patient did stop smoking about 4 months ago. Patient is eating better. Hence, will discontinue the IV fluids. Thank you Dr. Sidhu. WENDY
[2016-12-12] MEDS: IPRATROPIUM-ALBUTEROL 3 ML NEB INHALATION SCH ×3 (07:08→15:45)
[2016-12-12 07:44] VITALS: BP 167/85; RESP 16; TEMP 97.4
[2016-12-12] MEDS: ENOXAPARIN 40 MG/0.4 ML SYRINGE SQ SCH (09:22)
[2016-12-12] MEDS: guaiFENesin 600 MG TABLET.ER PO SCH (09:24)
[2016-12-12] MEDS: HYDROcodone/APAP 5-325MG 1 EACH TAB PO PRN (09:30)
[2016-12-12 12:03] VITALS: PULSE 76
--- NOTE | 2016-12-12 15:09 | P.PN ---
Progress Note - Text The patient is doing much better. She is tolerating liquids and drinking a fair amount. Still doesn't feel like eating solid food. Passing flatus. Her wheezing is much better. On examination the patient is awake alert cheerful in no distress. Temperature is normal. Vitals are stable. Abdomen is soft nontender trocar sites are clean some ecchymosis. No guarding or rebound. Impression resolved nausea vomiting syncopal episode. Dehydration now resolved. Recent lap di. Also history of the Jorge fundoplication 2 and the gastric band and sleeve for the procedures. Recommendation. From a surgical standpoint patient can be discharged. She is encouraged to drink lots of fluids. Avoid narcotic analgesic medications now. May resume her home meds. No heavy lifting for a week. May shower. Follow-up with Dr. Sidhu in a week.
--- NOTE | 2016-12-12 18:17 | P.PN ---
Subjective Principal diagnosis: Near syncope Ms. Eller is a 61-year-old patient followed by Dr. Nielson who underwent laparoscopic cholecystectomy by 2 days ago. Patient since left the hospital and not be feeling well hardly eating, having nausea and some vomiting , only drinking some coffee. Feeling tired and rundown patient was becoming more and more dizzy and went out shopping, and nearly passed out. No headaches , no double vision, no focal weakness. Feeling tired and rundown, a lot of nausea, abdomen felt distended and not had a bowel movement since her surgery no flatus, has admitted with the same. Patient was initially admitted under Dr. Braga but eventually transferred to surgical services. Abdominal x-ray shows a nonspecific bowel gas pattern with no evidence of obstruction or ileus. She is managed conservatively with IV fluids and currently she is able to tolerate liquids by mouth. She does not have any active complaints today. She denies having any chest pain , nausea, vomiting, difficulty in breathing. Objective - Vital Signs Vital signs: Vital Signs Temp 97.4 F L 12/12/16 07:43 Pulse 76 12/12/16 12:09 Resp 16 12/12/16 07:43 BP 167/85 12/12/16 07:43 Pulse Ox 98 12/12/16 13:51 Intake & Output 12/11/16 12/12/16 12/12/16 18:59 06:59 18:59 Intake Total 780 236 Balance 780 236 Weight 87.543 kg Intake: Oral 780 236 Other: Voiding Method Toilet Toilet Toilet # Voids 2 - Exam ENERAL: Average built, laying in bed tired appearing. EYES: Pupils equal. Conjunctiva normal. HEART: First and second heart sounds are normal; no edema. LUNGS: Respiratory rate normal; decreased breath sounds, some wheezing. ABDOMEN: Soft, distended, mild tenderness, however hyperactive bowel sounds no guarding rigidity liver spleen not palpable, no masses palpable. LYMPHATICS: No lymph nodes palpable in the axilla and neck. NEUROLOGICAL: Cranial nerves grossly intact; no facial asymmetry, power and sensation grossly intact. - Labs CBC & Chem 7: 12/11/16 06:30 12/11/16 06:30 Labs: Microbiology - Last 24 Hours (Table) 12/12/16 12:15 Sputum Culture - Preliminary Sputum Assessment and Plan Plan: ASSESSMENT -Near-syncope from patient being dehydrated has patient not eating for to 3 days and having nausea vomiting, post surgically -Possibly early ileus postoperative from recent cholecystectomy - resolving -COPD in an ex-smoker -Chronic fibromyalgia -Hyperlipidemia -Essential hypertension -Chronic epilepsy -Primary osteoarthritis of multiple joints -Leukocytosis- reactive- resolved PLAN Patient is tolerating clear liquids by mouth and is passing flatus. Continue GI and DVT prophylaxis. She can be discharged from medicine standpoint of view.
[2016-12-12] MEDS ORDERED: SYMBICORT 160-4.5 MCG INHALER INHALATION SCH (20:00)
[2016-12-13] MEDS ORDERED: TIOTROPIUM 18 MCG/PUFF INHALER INHALATION SCH (08:00)
--- NOTE | 2016-12-16 19:23 | P.PN ---
Progress Note - Text The patient feels better. She will also be discharged home today. On exam her vital signs show. Her abdomen soft. Resolving abdominal pain. Patient will follow-up in the office.
== END 2016-12-12 15:54 | disposition home or self-care (01) ==
LOC: EC 15:08 → 3OBS 15:52
PROVIDERS: ADMIT Surgery; ATTEND Surgery
DX: I95.1 Orthostatic hypotension (principal); G40.909 Epilepsy, unspecified, not intractable, without status epilepticus; M79.7 Fibromyalgia; E78.5 Hyperlipidemia, unspecified; I10 Essential (primary) hypertension; E86.0 Dehydration; K21.9 Gastro-esophageal reflux disease without esophagitis; M19.91 Primary osteoarthritis, unspecified site; Z99.81 Dependence on supplemental oxygen; Z79.891 Long term (current) use of opiate analgesic; Z79.899 Other long term (current) drug therapy; Z87.891 Personal history of nicotine dependence; Z98.84 Bariatric surgery status; Z86.73 Personal history of transient ischemic attack (TIA), and cerebral infarction without residual deficits; J44.1 Chronic obstructive pulmonary disease with (acute) exacerbation; R11.10 Vomiting, unspecified; Z90.49 Acquired absence of other specified parts of digestive tract
CPT/HCPCS: 99285 ×2; 96372 ×3; 96374; 94640 ×3; 94760; 80048 ×2; 85025 ×2; 87070; 87205; 87077; 87186; 74022; 71010; G0378 ×4; J2405; J1650 ×3; 96361

== ENCOUNTER 2016-12-15 12:44 | Inpatient (IN) | payer MEDICARE ==
[2016-12-15] MEDS ORDERED: SODIUM CHLORIDE 0.9% 500 ML IV STA ×2 (13:04→14:33)
--- NOTE | 2016-12-15 13:05 | ED ---
General Adult HPI <Ramesh Graves - Last Filed: 12/15/16 16:29> - General Source: patient, family, RN notes reviewed Mode of arrival: wheelchair Limitations: no limitations <Guillermo Aragon - Last Filed: 12/15/16 16:39> - General Chief complaint: Back Pain/Injury Stated complaint: back pain Time Seen by Provider: 12/15/16 12:54 - History of Present Illness Initial comments: Patient 61-year-old female status post cholecystectomy times a week, who presents emergency room today with chief complaint of sided back pain. She does admit that pain started again today. States his symptoms that she was having prior to surgery. She does admit that she was recently seen here in the hospital admitted released. States that after the surgery she is feeling well she is pain-free. She became lightheaded and dizzy and was admitted for dehydration. She states she's felt well until this morning she's had pain once again. She states this is same pain that she had prior to the surgery. She denies any other complaints or associated symptoms at this time. Patient denies any recent fever, chills, shortness of breath, chest pain, abdominal pain , nausea or vomiting, numbness or tingling, dysuria or hematuria, constipation or diarrhea, headaches or visual changes, or any other complaints. (Guillermo Aragon) - Related Data Home Medications Medication Instructions Recorded Confirmed Atenolol [Tenormin] 100 mg PO HS 03/14/14 12/15/16 Cyclobenzaprine [Flexeril] 10 mg PO HS PRN 11/23/16 12/15/16 Famotidine [Pepcid] 40 mg PO HS 11/23/16 12/15/16 levETIRAcetam [Keppra] 1,000 mg PO HS 11/23/16 12/15/16 Atorvastatin [Lipitor] 20 mg PO HS 12/09/16 12/15/16 Docusate [Colace] 200 mg PO HS 12/09/16 12/15/16 FLUoxetine HCL [PROzac] 20 mg PO HS 12/09/16 12/15/16 HYDROcodone/APAP 7.5-325MG [[place] 1 tab PO Q4H PRN 12/09/16 12/15/16 7.5] Naproxen 1,000 mg PO HS PRN 12/09/16 12/15/16 OXcarbazepine [Trileptal] 1,200 mg PO HS 12/09/16 12/15/16 Pregabalin [Lyrica] 450 mg PO HS 12/09/16 12/15/16 Allergies Allergy/AdvReac Type Severity Reaction Status Date / Time No Known Allergies Allergy Verified 12/15/16 13:58 Review of Systems ROS Other: All systems not noted in ROS Statement are negative. <Ramesh Graves - Last Filed: 12/15/16 16:29> ROS Other: All systems not noted in ROS Statement are negative. <Guillermo Aragon - Last Filed: 12/15/16 16:39> ROS Statement: Those systems with pertinent positive or pertinent negative responses have been documented in the HPI. Past Medical History Past Medical History: COPD, CVA/TIA, Fibromyalgia, Hyperlipidemia, Hypertension , Pneumonia, Seizure Disorder Additional Past Medical History / Comment(s): 12-08-16 c/o dizziness/fall. P . has had pne 3 times. LAST KNOWN SEIZURE 2014 PER PT History of Any Multi-Drug Resistant Organisms: None Reported Past Surgical History: Adenoidectomy, Bariatric Surgery, Cholecystectomy, Hysterectomy, Tonsillectomy Additional Past Surgical History / Comment(s): lap band 2010. EGD-11/25/16, lap choley Past Anesthesia/Blood Transfusion Reactions: No Reported Reaction Additional Past Anesthesia/Blood Transfusion Reaction / Comment(s): clausterphobia Past Psychological History: No Psychological Hx Reported Smoking Status: Former smoker Past Alcohol Use History: None Reported Past Drug Use History: None Reported - Past Family History Father Family Medical History: Cancer Mother Family Medical History: Cancer <Guillermo Aragon - Last Filed: 12/15/16 16:39> General Exam <Ramesh Graves - Last Filed: 12/15/16 16:29> Limitations: no limitations <Guillermo Aragon - Last Filed: 12/15/16 16:39> - General Exam Comments Initial Comments: General: The patient is awake and alert, in no distress, and does not appear acutely ill. Eye: Pupils are equal, round and reactive to light, extra-ocular movements are intact. No nystagmus. There is normal conjunctiva bilaterally. No signs of icterus. Ears, nose, mouth and throat: There are moist mucous membranes and no oral lesions. Neck: The neck is supple, there is no tenderness or JVD. Cardiovascular: There is a regular rate and rhythm. No murmur, rub or gallop is appreciated. Respiratory: Lungs are clear to auscultation, respirations are non-labored, breath sounds are equal. No wheezes, stridor, rales, or rhonchi. Gastrointestinal: His abdomen. Normal bowel sounds. Soft on palpation. Patient does have tenderness in epigastric right upper quadrants. No rebound tenderness. No guarding. Musculoskeletal: Normal ROM, no tenderness. Strength 5/5. Sensation intact. Pulses equal bilaterally 2+. Neurological: A&O x 3. CN II-XII intact, There are no obvious motor or sensory deficits. Coordination appears grossly intact. Speech is normal. Skin: Skin is warm and dry and no rashes or lesions are noted. Psychiatric: Cooperative, appropriate mood & affect, normal judgment. (Guillermo Aragon) Medical Decision Making - Lab Data Result diagrams: 12/15/16 13:23 12/15/16 13:23 <Ramesh Graves - Last Filed: 12/15/16 16:29> - Lab Data Result diagrams: 12/15/16 13:23 12/15/16 13:23 <Guillermo Aragon - Last Filed: 12/15/16 16:39> - Medical Decision Making Patient was reevaluated by myself, Dr. Graves. Patient is a poor historian. Patient does have mild right upper quadrant tenderness and complains of back pain still. Results reviewed. Computed tomography scan questionable pneumonitis. Patient will be covered with antibiotics for this. Patient does not meet sepsis criteria. There is some fluid in the gallbladder fossa. Case was discussed in detail with Dr. Mcgregor, covering for Dr. Sidhu. He does recommend HIDA scan but also has low suspicion for bile leak. Consult will be placed. Patient will be provided IV fluids for hyponatremia. Case was also discussed with practitioner Kevin, who will admit for Dr. Irwin, covering for Dr. stacy, who admits for Dr. Nielson. (Ramesh Graves) - Lab Data Lab Results 12/15/16 12/15/16 Range/Units 13:23 13: WBC 6.2 (3.8-10.6) k/uL RBC 4.52 (3.80-5.40) m/uL Hgb 13.5 D (11.4-16.0) gm/dL Hct 39.2 (34.0-46.0) % MCV 86.9 (80.0-100.0) fL MCH 29.8 (25.0-35.0) pg MCHC 34.3 (31.0-37.0) g/dL RDW 17.0 H (11.5-15.5) % Plt Count 271 (150-450) k/uL Neutrophils % 64 % Lymphocytes % 23 % Monocytes % 7 % Eosinophils % 4 % Basophils % 1 % Neutrophils # 4.0 (1.3-7.7) k/uL Lymphocytes # 1.4 (1.0-4.8) k/uL Monocytes # 0.4 (0-1.0) k/uL Eosinophils # 0.2 (0-0.7) k/uL Basophils # 0.0 (0-0.2) k/uL Anisocytosis Slight Sodium 127 L (137-145) mmol/L Potassium 4.0 (3.5-5.1) mmol/L Chloride 94 L (98-107) mmol/L Carbon Dioxide 24 (22-30) mmol/L Anion Gap 9 mmol/L BUN 4 L (7-17) mg/dL Creatinine 0.54 (0.52-1.04) mg/dL Est GFR (MDRD) Af Amer >60 (>60 ml/min/1.73 sqM) Est GFR (MDRD) Non-Af >60 (>60 ml/min/1.73 sqM) Glucose 159 H (74-99) mg/dL Calcium 8.9 (8.4-10.2) mg/dL Total Bilirubin 0.6 (0.2-1.3) mg/dL AST 18 (14-36) U/L ALT 24 (9-52) U/L Alkaline Phosphatase 143 H (38-126) U/L Total Protein 6.2 L (6.3-8.2) g/dL Albumin 3.8 (3.5-5.0) g/dL Amylase <30 L (30-110) U/L Lipase 104 (23-300) U/L Disposition <Ramesh Graves - Last Filed: 12/15/16 16:29> Time of Disposition: 16:22 <Guillermo Aragon - Last Filed: 12/15/16 16:39> Clinical Impression: Hyponatremia, Abdominal pain, Pneumonitis Disposition: ADMITTED IP TO THIS HOSP Condition: Stable Referrals: Sonia Nielson MD [Primary Care Provider] - 1-2 days
[2016-12-15 13:33] LABS: Anisocytosis Slight; Basophils % (A) 1 %; CH 29.8; CHCM 34.5; Eosinophils # (A) 0.2 k/uL (0-0.7); Eosinophils % (A) 4 %; HCT 39.2 % (34.0-46.0); HDW 3.26; Luc # (Auto) 0.12; Luc % (Auto) 2; Lymphocytes # (A) 1.4 k/uL (1.0-4.8); Lymphocytes % (A) 23 %; MCH 29.8 pg (25.0-35.0); MCHC 34.3 g/dL (31.0-37.0); MCV 86.9 fL (80.0-100.0); Mean Platelet Volume 7.6; Monocytes # (A) 0.4 k/uL (0-1.0); Monocytes % (A) 7 %; Neutrophils % (A) 64 %; RBC 4.52 m/uL (3.80-5.40); WBC 6.2 k/uL (3.8-10.6); WBC (Perox) 6.22
[2016-12-15 13:37] LABS: HGB 13.5 gm/dL (11.4-16.0)
[2016-12-15 13:43] LABS: ALT 24 U/L (9-52); AST 18 U/L (14-36); Alkaline Phosphatase 143 U/L (38-126); Amylase <30 U/L (30-110); Anion Gap 9 mmol/L; Blood Urea Nitrogen 4 mg/dL (7-17); Calcium 8.9 mg/dL (8.4-10.2); Carbon Dioxide 24 mmol/L (22-30); Chloride 94 mmol/L (98-107); Glucose 159 mg/dL (74-99); Non-African American GFR(MDRD) >60 (>60 ml/min/1.73 sqM); Sodium 127 mmol/L (137-145); Total Bilirubin 0.6 mg/dL (0.2-1.3); Total Protein 6.2 g/dL (6.3-8.2)
--- NOTE | 2016-12-15 14:25 | XR ---
EXAMINATION TYPE: XR KUB DATE OF EXAM: 12/15/2016 COMPARISON: 12/10/2016 HISTORY: Pain TECHNIQUE: One view abdominal series FINDINGS: The osseous structures are intact. The bowel gas pattern is nonspecific. Lung bases are clear. Post surgical change in the epigastrium compatible with LAP-BAND surgery. Single prominent small bowel loo p in the midabdomen. Diffuse osteopenia and arthropathy of the hips. Ossification adjacent to the gre ater trochanter on the right. Hypertrophic change of the spine. Chronic appearing deformity of the an terior margin of the left lower rib cage. IMPRESSION: 1. Nonspecific abdomen. There are couple small bowel loops in the lower abdomen which are slightly p rominent but nonspecific. Correlate with CT scan as clinically warranted.
[2016-12-15] MEDS ORDERED: RX INFO: IV CONTRAST WAS GIVEN 1 EACH MISC MISCELLANE PRN (14:33)
--- NOTE | 2016-12-15 15:44 | CT ---
CT CHEST FOR PULMONARY EMBOLISM. EXAMINATION TYPE: CT angio chest DATE OF EXAM: 12/15/2016 INDICATION: Shortness of breath and dizziness. Post OP Cholecystectomy 2-[address] DLP: 605.3 mGycm, Automated exposure control for dose reduction was used. CONTRAST: Patient injected with 100 mL of Omnipaque 350. COMPARISON: NONE TECHNIQUE: CT of the chest is performed on a spiral scan at 2 mm thick sections. Study is performed with intravenous contrast timed for evaluation for pulmonary embolism. This will limit additional po rtions of the evaluation. 3-D MIP images reconstructed by the technologist are reviewed on the compu ter in the coronal and sagittal planes. FINDINGS: No persistent filling defects are evident to suggest an acute pulmonary embolism. No mediastinal or hilar adenopathy enlarged by CT criteria is evident. The ascending aorta diameter at the level of the main pulmonary artery is 3.4 cm. The main pulmonary artery diameter at the bifur cation is 2.6 cm. Coronary artery calcification is present. Some pneumonitis changes within the right middle lobe near the diaphragm. No suspicious nodules are i dentified. Limited CT section through the upper abdomen are unremarkable. There is a hiatal hernia present. Lap band is present. IMPRESSIONS: 1. No acute pulmonary embolism. 2. Mild pneumonitis change in the right middle lobe near the diaphragm. Correlate for subsegmental at electasis.
--- NOTE | 2016-12-15 15:47 | CT ---
EXAMINATION TYPE: CT abdomen pelvis w con DATE OF EXAM: 12/15/2016 COMPARISON: NONE INDICATION: Shortness of breath and dizziness. Post OP Cholecystectomy 2-3 weeks ago. DLP: 1061.3 mGycm, Automated exposure control for dose reduction was used. CONTRAST: 100 mL of Omnipaque 350. Study performed without Oral Contrast TECHNIQUE: Axial images were obtained from above the diaphragm to the pubic rami in the axial plane a t 5 mm thick sections. Reconstructed images are reviewed on the computer in the coronal plane. FINDINGS: Limited CT sections are obtained the lung bases. The lung bases are clear. Hiatal hernia is present . CT ABDOMEN: Lap band is present. Liver: Normal Spleen: Normal Pancreas: Normal Adrenal glands: The adrenal glands are normal. Gallbladder: Absent. Some minimal fluid within the gallbladder bed fossa is not excluded this could b e postsurgical in nature. Volume averaging with the adjacent liver could be considered within the dif ferential. Consider HIDA scan to evaluate for possible leak. Volume appears smaller than expected for typical leak. Kidneys: No masses are evident. No hydronephrosis is present. No cysts are present. Delayed images were obtained through the kidneys, which remain unremarkable. Aorta: Vascular calcification is within the aorta. Inferior vena cava: Normal. CT PELVIS: Loops of bowel within the abdomen and pelvis are normal. There are loops of bowel which are incom pletely distended or lack oral contrast limiting their evaluation. There are a few scattered divertic jarad present. Appendix: Normal as visualized. Urinary bladder: Normal. Genitourinary structures: Uterus and ovaries are not identified. Osseous structures: No suspicious lytic or sclerotic lesions. IMPRESSIONS: 1. Minimal fluid versus volume averaging of the adjacent liver within the gallbladder bed fossa. Con blender HIDA scan for additional evaluation. Fluid volume is less than typically identified with a leak . 2. Few scattered sigmoid diverticuli without evidence of acute diverticulitis.
[2016-12-15] MEDS ORDERED: ONDANSETRON 4 MG/2 ML VIAL IVP PRN (16:33)
[2016-12-15] MEDS ORDERED: NALOXONE 0.4 MG/ML 1 ML VIAL IV PRN (16:33)
[2016-12-15] MEDS ORDERED: ACETAMINOPHEN TAB 325 MG TAB PO PRN (16:33)
[2016-12-15] MEDS ORDERED: LEVOFLOXACIN 500MG-D5W PMX 500 MG in DEXTROSE/WATER 1 100ML.BAG IVPB STA (16:35)
[2016-12-15 18:15] LABS: Appearance,Urine Clear (Clear); Bilirubin,Urine Negative (Negative); Glucose,Urine (UA) Negative (Negative); Ketones,Urine Negative (Negative); Leukocyte Esterase,Urine Trace (Negative); Nitrite,Urine Negative (Negative); Particle Count 1425; Protein,Urine Negative (Negative); RBC,Urine <1 /hpf (0-5); Specific Gravity,Urine 1.035 (1.001-1.035); Squamous Epithelial Cell,Urine <1 /hpf (0-4); UA Billing (MACRO vs. MICRO) MICRO; Urobilinogen,Urine <2.0 mg/dL (<2.0); WBC,Urine 1 /hpf (0-5)
[2016-12-15 19:37] VITALS: BMI 36.0
[2016-12-15] MEDS: HYDROmorphone 1 MG/ML 1 ML SYRINGE IV PRN ×2 (20:31→23:37)
[2016-12-15] MEDS: ATENOLOL 50 MG TAB PO SCH (22:39)
[2016-12-15] MEDS: ATORVASTATIN 20 MG TAB PO SCH (22:39)
[2016-12-15] MEDS: DOCUSATE 100 MG CAP PO SCH (22:39)
[2016-12-15] MEDS: FAMOTIDINE 20 MG TAB PO SCH (22:40)
[2016-12-15] MEDS: FLUoxetine HCL 20 MG CAP PO SCH (22:40)
[2016-12-15] MEDS: levETIRAcetam 500 MG TAB PO SCH (22:40)
[2016-12-15] MEDS ORDERED: CYCLOBENZAPRINE 10 MG TAB PO PRN (22:56)
[2016-12-15] MEDS: PREGABALIN 75 MG CAP PO SCH (23:02)
[2016-12-15] MEDS: OXcarbazepine 300 MG TAB PO SCH (23:02)
[2016-12-16] MEDS: HYDROmorphone 1 MG/ML 1 ML SYRINGE IV PRN ×3 (02:40→19:51)
[2016-12-16 07:46] LABS: Anisocytosis Slight; Basophils % (A) 0 %; CH 29.4; CHCM 33.3; Eosinophils # (A) 0.3 k/uL (0-0.7); Eosinophils % (A) 4 %; HCT 38.4 % (34.0-46.0); HDW 3.42; HGB 12.4 gm/dL (11.4-16.0); Luc # (Auto) 0.22; Luc % (Auto) 2; Lymphocytes # (A) 1.7 k/uL (1.0-4.8); Lymphocytes % (A) 19 %; MCH 28.8 pg (25.0-35.0); MCHC 32.3 g/dL (31.0-37.0); MCV 88.9 fL (80.0-100.0); Mean Platelet Volume 7.1; Monocytes # (A) 0.8 k/uL (0-1.0); Monocytes % (A) 9 %; Neutrophils # (A) 6.1 k/uL (1.3-7.7); Neutrophils % (A) 66 %; Poikilocytosis Slight; RBC 4.32 m/uL (3.80-5.40); RDW 16.9 % (11.5-15.5); WBC 9.3 k/uL (3.8-10.6); WBC (Perox) 9.31
[2016-12-16 08:05] LABS: ALT 25 U/L (9-52); AST 15 U/L (14-36); Alkaline Phosphatase 127 U/L (38-126); Anion Gap 11 mmol/L; Blood Urea Nitrogen 4 mg/dL (7-17); Calcium 8.6 mg/dL (8.4-10.2); Carbon Dioxide 22 mmol/L (22-30); Chloride 98 mmol/L (98-107); Glucose 113 mg/dL (74-99); Non-African American GFR(MDRD) 55 (>60 ml/min/1.73 sqM); Potassium 3.3 mmol/L (3.5-5.1); Sodium 131 mmol/L (137-145); Total Bilirubin 0.3 mg/dL (0.2-1.3); Total Protein 5.7 g/dL (6.3-8.2)
[2016-12-16] MEDS ORDERED: IPRATROPIUM-ALBUTEROL 3 ML NEB INHALATION PRN (14:00)
--- NOTE | 2016-12-16 14:22 | XR ---
EXAMINATION TYPE: XR chest 2V DATE OF EXAM: 12/16/2016 COMPARISON: CT of the chest 12/15/2016 HISTORY: Shortness of breath TECHNIQUE: Frontal and lateral views of the chest are obtained. FINDINGS: Scattered senescent parenchymal changes noted. Hyperinflation compatible with COPD. No evidence for infiltrate. No evidence for atelectasis. Heart size is stable. Mediastinal structures are stable and grossly unremarkable. Right hilar fullness is related to prominence of the pulmonary vasculature. Degenerative changes dorsal spine. IMPRESSION: 1. No evidence for acute pulmonary disease.
[2016-12-16] MEDS: IPRATROPIUM-ALBUTEROL 3 ML NEB INHALATION SCH ×2 (15:38→19:48)
[2016-12-16] MEDS ORDERED: LEVOFLOXACIN 500MG-D5W PMX 500 MG in DEXTROSE/WATER 1 100ML.BAG IVPB SCH (16:00)
--- NOTE | 2016-12-16 16:01 | P.HPIM ---
History of Present Illness Patient 61-year-old female status post cholecystectomy times a week, who presents emergency room today with chief complaint of low back pain for about 2 months, her pain is non raditing. Abdominal CT is negative, abdomen was read as possible pneumonia I reviewed the CT of the abdomen and do not believe patient has pneumonia does have atelectasis. Patient has severe tracheobronchitis . States his symptoms that she was having prior to surgery. Patient was also rhonchorous and does have expiratory wheezing patient is in COPD exacerbation related to be made as inpatient patient was started on systemic steroids inhalational treatments patient was transferred to [facility]. . Patient denies any recent fever, chills, chest pain, abdominal pain, nausea or vomiting, numbness or tingling, dysuria or hematuria, constipation or diarrhea, headaches or visual changes, or any other complaints. Review of Systems REVIEW OF SYSTEMS: CONSTITUTIONAL: No fever, no malaise, no fatigue. HEENT: No recent visual problems or hearing problems. Denied any sore throat. CARDIOVASCULAR: No chest pain, orthopnea, PND, no palpitations, no syncope. PULMONARY: no hemoptysis patient is complaining of shortness of breath cough with yellow sputum production. GASTROINTESTINAL: No diarrhea, no nausea, no vomiting, no abdominal pain. Normoactive bowel sounds. NEUROLOGICAL: No headaches, no weakness, no numbness. HEMATOLOGICAL: Denies any bleeding or petechiae. GENITOURINARY: Denies any burning micturition, frequency, or urgency. MUSCULOSKELETAL/RHEUMATOLOGICAL: Denies any joint pain, swelling, or any muscle pain. Does have back pain. ENDOCRINE: Denies any polyuria or polydipsia. The rest of the 14-point review of systems is negative. Past Medical History Past Medical History: COPD, CVA/TIA, Fibromyalgia, Hyperlipidemia, Hypertension , Pneumonia, Seizure Disorder Additional Past Medical History / Comment(s): 12-08-16 c/o dizziness/fall. P . has had pne 3 times. LAST KNOWN SEIZURE 2015 PER PT History of Any Multi-Drug Resistant Organisms: None Reported Past Surgical History: Adenoidectomy, Bariatric Surgery, Cholecystectomy, Hysterectomy, Tonsillectomy Additional Past Surgical History / Comment(s): lap band 2009. EGD-11/25/16, javon ulloa Past Anesthesia/Blood Transfusion Reactions: No Reported Reaction Additional Past Anesthesia/Blood Transfusion Reaction / Comment(s): clausterphobia Past Psychological History: No Psychological Hx Reported Smoking Status: Former smoker Past Alcohol Use History: None Reported Additional Past Alcohol Use History / Comment(s): started smoking at ge 17, smoked 1 ppd.quit -2016 Past Drug Use History: None Reported - Past Family History Father Family Medical History: Cancer Mother Family Medical History: Cancer Medications and Allergies Home Medications Medication Instructions Recorded Confirmed Type Atenolol [Tenormin] 100 mg PO HS 03/14/14 12/15/16 History Cyclobenzaprine [Flexeril] 10 mg PO HS PRN 11/23/16 12/15/16 History Famotidine [Pepcid] 40 mg PO HS 11/23/16 12/15/16 History levETIRAcetam [Keppra] 1,000 mg PO HS 11/23/16 12/15/16 History Atorvastatin [Lipitor] 20 mg PO HS 12/09/16 12/15/16 History Docusate [Colace] 200 mg PO HS 12/09/16 12/15/16 History FLUoxetine HCL [PROzac] 20 mg PO HS 12/09/16 12/15/16 History HYDROcodone/APAP 7.5-325MG [[place] 1 tab PO Q4H PRN 12/09/16 12/15/16 History 7.5] Naproxen 1,000 mg PO HS PRN 12/09/16 12/15/16 History OXcarbazepine [Trileptal] 1,200 mg PO HS 12/09/16 12/15/16 History Pregabalin [Lyrica] 450 mg PO HS 12/09/16 12/15/16 History Allergies Allergy/AdvReac Type Severity Reaction Status Date / Time No Known Allergies Allergy Verified 12/15/16 13:58 Physical Exam Vitals: Vital Signs Temp Pulse Pulse Resp BP BP Pulse Ox 12/16/16 15:40 88 12/16/16 14:35 97.2 F L 92 17 105/71 75 L 12/16/16 08:00 75 16 12/16/16 07:00 96.8 F L 75 16 105/67 93 L 12/16/16 01:51 97.6 F 72 16 154/91 91 L 12/15/16 20:00 17 12/15/16 18:29 97.1 F L 86 17 192/90 93 L 12/15/16 17:00 97.4 F L 71 18 164/91 98 12/15/16 16:35 97.3 F L 72 16 167/96 99 Intake and Output 12/16/16 12/16/16 12/16/16 06:59 14:59 22:59 Intake Total 640 850 Balance 640 850 Intake: Intake, IV Titration 160 Amount Sodium Chloride 0.9% 500 160 ml @ 999 mls/hr IV .Q31M STA Rx#:[id number] Oral 480 850 Other: Voiding Method Toilet # Bowel Movements 1 PHYSICAL EXAMINATION: GENERAL: The patient is alert and oriented x3, not in any acute distress. Well developed, well nourished. HEENT: Pupils are round and equally reacting to light. EOMI. No scleral icterus. No conjunctival pallor. Normocephalic, atraumatic. No pharyngeal erythema. No thyromegaly. CARDIOVASCULAR: S1 and S2 present. No murmurs, rubs, or gallops. PULMONARY: Patient does have rhonchus breath sounds bilaterally lung with expiratory wheezing. ABDOMEN: Soft, nontender, nondistended, normoactive bowel sounds. No palpable organomegaly. MUSCULOSKELETAL: No joint swelling or deformity. EXTREMITIES: No cyanosis, clubbing, or pedal edema. NEUROLOGICAL: Gross neurological examination did not reveal any focal deficits. SKIN: No rashes. Results CBC & Chem 7: 12/16/16 07:14 12/16/16 07:14 Labs: Abnormal Lab Results - Last 24 Hours (Table) 12/15/16 12/16/16 12/16/16 Range/Units 18:00 07:14 07:14 RDW 16.9 H (11.5-15.5) % Sodium 131 L (137-145) mmol/L Potassium 3.3 L (3.5-5.1) mmol/L BUN 4 L (7-17) mg/dL Glucose 113 H (74-99) mg/dL Alkaline Phosphatase 127 H (38-126) U/L Total Protein 5.7 L (6.3-8.2) g/dL Ur Leukocyte Esterase Trace H (Negative) Thrombosis Risk Factor Assmnt - Choose All That Apply Any of the Below Risk Factors Present?: Yes Each Factor Represents 1 point: Age 41-60 years, Obesity (BMI >25) Other Risk Factors: No Thrombosis Risk Factor Assessment Total Risk Factor Score: 2 Thrombosis Risk Factor Assessment Level: Low Risk Assessment and Plan Plan: #1 acute hypercapnic respiratory failure secondary to COPD exacerbation with severe tracheobronchitis: Patient is already on levofloxacin which will be continued patient will be started on oral steroids inhalational treatments. 2 back pain although abdominal computed tomography scan essentially negative patient may have chronic low back pain which will need further evaluation and treatment as an outpatient. #3 hyponatremia: Hypovolemic hyponatremia improved with IV fluids. #4 hyperlipidemia #5 history of seizures in the past
[2016-12-16] MEDS: predniSONE 20 MG TAB PO SCH (16:13)
[2016-12-16 16:49] VITALS: RESP 18
--- NOTE | 2016-12-16 19:26 | P.GSCN ---
History of Present Illness Consult date: 12/16/16 Reason for Consult: Abdominal pain and low back pain History of present illness: This is 61-year-old female who is admitted to the hospital with complaints of low back pain. She also some mild complaints of lower quadrant abdominal pain. She underwent laparoscopic cholecystectomy 2 weeks ago. The pain is different than the pain she had with her gallbladder. Past Medical History Past Medical History: COPD, CVA/TIA, Fibromyalgia, Hyperlipidemia, Hypertension , Pneumonia, Seizure Disorder Additional Past Medical History / Comment(s): 12-08-16 c/o dizziness/fall. P . has had pne 3 times. LAST KNOWN SEIZURE 2014 PER PT History of Any Multi-Drug Resistant Organisms: None Reported Past Surgical History: Adenoidectomy, Bariatric Surgery, Cholecystectomy, Hysterectomy, Tonsillectomy Additional Past Surgical History / Comment(s): lap band 2009. EGD-11/25/16, lap choley Past Anesthesia/Blood Transfusion Reactions: No Reported Reaction Additional Past Anesthesia/Blood Transfusion Reaction / Comm: clausterphobia Past Psychological History: No Psychological Hx Reported Smoking Status: Former smoker Past Alcohol Use History: None Reported Additional Past Alcohol Use History / Comment(s): started smoking at ge 17, smoked 1 ppd.quit Past Drug Use History: None Reported - Past Family History Father Family Medical History: Cancer Mother Family Medical History: Cancer Medications and Allergies Home Medications Medication Instructions Recorded Confirmed Type Atenolol [Tenormin] 100 mg PO HS 03/14/14 12/15/16 History Cyclobenzaprine [Flexeril] 10 mg PO HS PRN 11/23/16 12/15/16 History Famotidine [Pepcid] 40 mg PO HS 11/23/16 12/15/16 History levETIRAcetam [Keppra] 1,000 mg PO HS 11/23/16 12/15/16 History Atorvastatin [Lipitor] 20 mg PO HS 12/09/16 12/15/16 History Docusate [Colace] 200 mg PO HS 12/09/16 12/15/16 History FLUoxetine HCL [PROzac] 20 mg PO HS 12/09/16 12/15/16 History HYDROcodone/APAP 7.5-325MG [[place] 1 tab PO Q4H PRN 12/09/16 12/15/16 History 7.5] Naproxen 1,000 mg PO HS PRN 12/09/16 12/15/16 History OXcarbazepine [Trileptal] 1,200 mg PO HS 12/09/16 12/15/16 History Pregabalin [Lyrica] 450 mg PO HS 12/09/16 12/15/16 History Allergies Allergy/AdvReac Type Severity Reaction Status Date / Time No Known Allergies Allergy Verified 12/15/16 13:58 Surgical - Exam Vital Signs Temp Pulse Resp BP Pulse Ox 96.8 F L 80 17 116/75 96 12/15/16 12:47 12/15/16 12:47 12/15/16 12:47 12/15/16 12:47 12/15/16 12:47 - General well developed, no distress - Eyes PERRL - Neck no masses - Respiratory normal expansion - Cardiovascular Rhythm: regular - Abdomen Abdomen: soft, non tender Results - Labs 12/16/16 07:14 12/16/16 07:14 Abnormal Lab Results - Last 24 Hours (Table) 12/16/16 12/16/16 Range/Units 07:14 07:14 RDW 16.9 H (11.5-15.5) % Sodium 131 L (137-145) mmol/L Potassium 3.3 L (3.5-5.1) mmol/L BUN 4 L (7-17) mg/dL Glucose 113 H (74-99) mg/dL Alkaline Phosphatase 127 H (38-126) U/L Total Protein 5.7 L (6.3-8.2) g/dL Diabetes panel 12/16/16 Range/Units 07:14 Sodium 131 L (137-145) mmol/L Potassium 3.3 L (3.5-5.1) mmol/L Chloride 98 (98-107) mmol/L Carbon Dioxide 22 (22-30) mmol/L BUN 4 L (7-17) mg/dL Creatinine 1.03 (0.52-1.04) mg/dL Glucose 113 H (74-99) mg/dL Calcium 8.6 (8.4-10.2) mg/dL AST 15 (14-36) U/L ALT 25 (9-52) U/L Alkaline Phosphatase 127 H (38-126) U/L Total Protein 5.7 L (6.3-8.2) g/dL Albumin 3.5 (3.5-5.0) g/dL Calcium panel 12/16/16 Range/Units 07:14 Calcium 8.6 (8.4-10.2) mg/dL Albumin 3.5 (3.5-5.0) g/dL Pituitary panel 12/16/16 Range/Units 07:14 Sodium 131 L (137-145) mmol/L Potassium 3.3 L (3.5-5.1) mmol/L Chloride 98 (98-107) mmol/L Carbon Dioxide 22 (22-30) mmol/L BUN 4 L (7-17) mg/dL Creatinine 1.03 (0.52-1.04) mg/dL Glucose 113 H (74-99) mg/dL Calcium 8.6 (8.4-10.2) mg/dL Adrenal panel 12/16/16 Range/Units 07:14 Sodium 131 L (137-145) mmol/L Potassium 3.3 L (3.5-5.1) mmol/L Chloride 98 (98-107) mmol/L Carbon Dioxide 22 (22-30) mmol/L BUN 4 L (7-17) mg/dL Creatinine 1.03 (0.52-1.04) mg/dL Glucose 113 H (74-99) mg/dL Calcium 8.6 (8.4-10.2) mg/dL Total Bilirubin 0.3 (0.2-1.3) mg/dL AST 15 (14-36) U/L ALT 25 (9-52) U/L Alkaline Phosphatase 127 H (38-126) U/L Total Protein 5.7 L (6.3-8.2) g/dL Albumin 3.5 (3.5-5.0) g/dL Assessment and Plan Plan: Low back pain Resolved abdominal pain. Patient will be managed by the medical team. No surgical intervention is planned.
[2016-12-16] MEDS: PREGABALIN 75 MG CAP PO SCH (21:28)
[2016-12-16] MEDS: OXcarbazepine 300 MG TAB PO SCH (21:28)
[2016-12-16] MEDS: FAMOTIDINE 20 MG TAB PO SCH (21:29)
[2016-12-16] MEDS: levETIRAcetam 500 MG TAB PO SCH (21:29)
[2016-12-16] MEDS: ATORVASTATIN 20 MG TAB PO SCH (21:29)
[2016-12-16] MEDS: FLUoxetine HCL 20 MG CAP PO SCH (21:29)
[2016-12-16] MEDS: ATENOLOL 50 MG TAB PO SCH (21:29)
[2016-12-16] MEDS: DOCUSATE 100 MG CAP PO SCH (21:29)
[2016-12-17] MEDS: HYDROmorphone 1 MG/ML 1 ML SYRINGE IV PRN ×2 (07:34→10:42)
[2016-12-17] MEDS: predniSONE 20 MG TAB PO SCH (07:34)
[2016-12-17 08:11] LABS: ALT 21 U/L (9-52); AST 22 U/L (14-36); Alkaline Phosphatase 108 U/L (38-126); Anion Gap 12 mmol/L; Blood Urea Nitrogen 10 mg/dL (7-17); Calcium 8.9 mg/dL (8.4-10.2); Carbon Dioxide 17 mmol/L (22-30); Chloride 100 mmol/L (98-107); Glucose 98 mg/dL (74-99); Non-African American GFR(MDRD) >60 (>60 ml/min/1.73 sqM); Sodium 129 mmol/L (137-145); Total Bilirubin 0.7 mg/dL (0.2-1.3)
[2016-12-17 08:15] LABS: Potassium 4.7 mmol/L (3.5-5.1)
[2016-12-17 08:30] VITALS: BP 126/68; TEMP 98.1
[2016-12-17] MEDS: IPRATROPIUM-ALBUTEROL 3 ML NEB INHALATION SCH ×2 (08:54→11:51)
[2016-12-17] MEDS ORDERED: SODIUM CHLORIDE 0.9% 1,000 ML IV SCH (10:15)
[2016-12-17 12:04] VITALS: PULSE 92
--- NOTE | 2016-12-17 12:23 | P.DS ---
Providers Date of admission: 12/16/16 15:48 Attending physician: Thom Irwin Consults: 12/15/16 16:33 Consult Physician Stat Consulting Provider: Erlin Sidhu Consult Reason/Comments: Abd pain Do you want consulting provider notified?: Yes, Notify in am Primary care physician: Sonia Nielson [facility] Course: Patient came in with low back pain which is chronic in nature patient had a recent surgery because of which patient was admitted here. Patient is found to be in COPD exacerbation and severe tracheobronchitis with both of which improved at this point of time patient is ablating patient saturating well upon ambulation. Patient was desaturating yesterday. Patient will be discharged today. PHYSICAL EXAMINATION: GENERAL: The patient is alert and oriented x3, not in any acute distress. Well developed, well nourished. HEENT: Pupils are round and equally reacting to light. EOMI. No scleral icterus. No conjunctival pallor. Normocephalic, atraumatic. No pharyngeal erythema. No thyromegaly. CARDIOVASCULAR: S1 and S2 present. No murmurs, rubs, or gallops. PULMONARY: Chest is clear to auscultation, no crackles. Minimal wheezing ABDOMEN: Soft, nontender, nondistended, normoactive bowel sounds. No palpable organomegaly. MUSCULOSKELETAL: No joint swelling or deformity. EXTREMITIES: No cyanosis, clubbing, or pedal edema. NEUROLOGICAL: Gross neurological examination did not reveal any focal deficits. SKIN: No rashes. #1 acute hypercapnic respiratory failure secondary to COPD exacerbation with severe tracheobronchitis: 2 back pain although abdominal computed tomography scan essentially negative patient may have chronic low back pain which will need further evaluation and treatment as an outpatient. #3 hyponatremia: Hypovolemic hyponatremia improved with IV fluids. #4 hyperlipidemia #5 history of seizures in the past Patient Condition at Discharge: Stable Plan - Discharge Summary New Discharge Prescriptions: New Albuterol Inhaler [Ventolin Hfa Inhaler] 1 - 2 puff INHALATION Q6HR PRN #1 inhaler PRN Reason: Shortness Of Breath Or Wheezing Budesonide-Formot 160-4.5 Mcg [Symbicort 160-4.5 Mcg Inhaler] 2 puff INHALATION BID #1 inhaler Levofloxacin [Levaquin] 500 mg PO DAILY #5 tab predniSONE 10 mg PO DAILY #30 tab Tiotropium [place] [Spiriva] 1 cap INHALATION DAILY #1 device Continue Atenolol [Tenormin] 100 mg PO HS levETIRAcetam [Keppra] 1,000 mg PO HS Cyclobenzaprine [Flexeril] 10 mg PO HS PRN PRN Reason: LEG SPASMS Famotidine [Pepcid] 40 mg PO HS OXcarbazepine [Trileptal] 1,200 mg PO HS HYDROcodone/APAP 7.5-325MG [[place] 7.5-325] 1 tab PO Q4H PRN PRN Reason: Pain Docusate [Colace] 200 mg PO HS FLUoxetine HCL [PROzac] 20 mg PO HS Atorvastatin [Lipitor] 20 mg PO HS Pregabalin [Lyrica] 450 mg PO HS Naproxen 1,000 mg PO HS PRN PRN Reason: Pain Discharge Medication List Atenolol [Tenormin] 100 mg PO HS 03/14/14 [History] Cyclobenzaprine [Flexeril] 10 mg PO HS PRN 11/23/16 [History] Famotidine [Pepcid] 40 mg PO HS 11/23/16 [History] levETIRAcetam [Keppra] 1,000 mg PO HS 11/23/16 [History] Atorvastatin [Lipitor] 20 mg PO HS 12/09/16 [History] Docusate [Colace] 200 mg PO HS 12/09/16 [History] FLUoxetine HCL [PROzac] 20 mg PO HS 12/09/16 [History] HYDROcodone/APAP 7.5-325MG [[place] 7.5-325] 1 tab PO Q4H PRN 12/09/16 [History] Naproxen 1,000 mg PO HS PRN 12/09/16 [History] OXcarbazepine [Trileptal] 1,200 mg PO HS 12/09/16 [History] Pregabalin [Lyrica] 450 mg PO HS 12/09/16 [History] Albuterol Inhaler [Ventolin Hfa Inhaler] 1 - 2 puff INHALATION Q6HR PRN #1 inhaler 12/17/16 [Rx] Budesonide-Formot 160-4.5 Mcg [Symbicort 160-4.5 Mcg Inhaler] 2 puff INHALATION BID #1 inhaler 07/22/17 [Rx] Levofloxacin [Levaquin] 500 mg PO DAILY #5 tab 12/17/16 [Rx] Tiotropium [place] [Spiriva] 1 cap INHALATION DAILY #1 device 12/17/16 [Rx] predniSONE 10 mg PO DAILY #30 tab 12/17/16 [Rx] Follow up Appointment(s)/Referral(s): Sonia Nielson MD [Primary Care Provider] - 3 Days (Patient to call Dr. Nielson's office Monday to schedule follow up appointment. The office is closed at time of discharge. ) Patient Instructions/Handouts: Albuterol (By breathing), Prednisone (By mouth) , Levofloxacin (By mouth), Tiotropium (By breathing), Budesonide/Formoterol (By breathing), Pneumonitis (DC), Hyponatremia (DC), Acute Abdominal Pain (DC) Discharge Disposition: HOME SELF-CARE
--- NOTE | 2016-12-17 12:57 | P.PN ---
Progress Note - Text The patient feels well. She states her pain is resolved. On exam her vital signs are stable. Her abdomen soft. The Patient was discharged home partial follow-up in one week.
== END 2016-12-17 12:45 | disposition home or self-care (01) | DRG 190 ==
LOC: EC 12:44 → 3SUR 16:31 → OBSVTOIN 12-16 15:48 → 5MS5E 12-16 19:15
PROVIDERS: ADMIT Hospitalist; ATTEND Hospitalist
DX: J44.0 Chronic obstructive pulmonary disease with (acute) lower respiratory infection (principal); J96.02 Acute respiratory failure with hypercapnia; E87.1 Hypo-osmolality and hyponatremia; E86.0 Dehydration; E86.1 Hypovolemia; J44.1 Chronic obstructive pulmonary disease with (acute) exacerbation; I10 Essential (primary) hypertension; J20.9 Acute bronchitis, unspecified; G40.909 Epilepsy, unspecified, not intractable, without status epilepticus; E66.9 Obesity, unspecified; R10.11 Right upper quadrant pain; R10.30 Lower abdominal pain, unspecified; M54.5 Low back pain; E78.5 Hyperlipidemia, unspecified; G89.29 Other chronic pain; M79.7 Fibromyalgia; Z98.84 Bariatric surgery status; Z90.49 Acquired absence of other specified parts of digestive tract; Z87.891 Personal history of nicotine dependence; Z86.73 Personal history of transient ischemic attack (TIA), and cerebral infarction without residual deficits; Z79.1 Long term (current) use of non-steroidal anti-inflammatories (NSAID); Z79.899 Other long term (current) drug therapy; Z79.891 Long term (current) use of opiate analgesic; Z80.9 Family history of malignant neoplasm, unspecified; Z87.01 Personal history of pneumonia (recurrent); Z91.81 History of falling; Z98.890 Other specified postprocedural states; Z90.710 Acquired absence of both cervix and uterus
CPT/HCPCS: 36415; 71020; 71275; 74000; 74177; 80053; 81001; 82150; 83605; 83690; 85025; 87040; 94640; 96360; 99285

== ENCOUNTER → 2017-04-03 | Outpatient (CLI) | payer MEDICARE ==
[2017-04-03 14:51] VITALS: BP 143/101; PULSE 78; TEMP 97.9; BMI 31.5
--- NOTE | 2017-04-03 16:36 | P.HPBAR ---
Bariatric H&P - History & Physicial H&P Date: 04/03/17 History & Physicial: Visit/CC: lap band follow up Patient initial contact: Initial weight: Initial weight in pounds: Height: 5 ft 5 in Initial BMI: Last weight: Current weight: 85.865 kg Current weight in pounds: 189.30 Current BMI: 31.5 [place] body weight (based on NIH guidelines): 56.699 kg Excess body weight loss: The patient is a 61 year-old F who presents for Bariatric Assessment. The patient is requesting to have her LAP-BAND removed. She's had issues with dysphagia and aspiration pneumonia. Past Medical History Past Medical History: COPD, CVA/TIA, Fibromyalgia, Hyperlipidemia, Hypertension , Pneumonia, Seizure Disorder Additional Past Medical History / Comment(s): 12-08-16 c/o dizziness/fall. P . has had pne 3 times. LAST KNOWN SEIZURE 2014 PER PT History of Any Multi-Drug Resistant Organisms: None Reported Past Surgical History: Adenoidectomy, Bariatric Surgery, Cholecystectomy, Hysterectomy, Tonsillectomy Additional Past Surgical History / Comment(s): lap band 2009. EGD-11/25/16, lap choley Past Anesthesia/Blood Transfusion Reactions: No Reported Reaction Additional Past Anesthesia/Blood Transfusion Reaction / Comm: clausterphobia Past Psychological History: No Psychological Hx Reported Smoking Status: Former smoker Past Alcohol Use History: None Reported Additional Past Alcohol Use History / Comment(s): started smoking at ge 17, smoked 1 ppd.quit Past Drug Use History: None Reported - Past Family History Father Family Medical History: Cancer Mother Family Medical History: Cancer Surgical - Exam Vital Signs Temp Pulse BP 97.9 F 78 143/101 04/03/17 14:44 04/03/17 14:44 04/03/17 14:44 - General well developed - Eyes PERRL - Abdomen Abdomen: soft Bariatric Assessment & Plan Plan: The patient is expressing chronic dysphagia. She will have her LAP-BAND removed. We did discuss the possibility sleeve gastrectomy. At this time she wishes to have her LAP-BAND removed. She will follow-up afterwards and decided she wants to have a sleeve performed. Bariatric Checklist Checklist: Plan: Checklist: EGD: 1. Hiatal hernia: 2. H. Pylori: HgbA1c: Vitamin D: Smoking: Former smoker Primary care physician referral: dr joshua Psychiatry clearance: Cardiology clearance: Sleep study: Diet journal: VTE risk score: VTE risk level: Rehab needs at discharge:
== END | disposition home or self-care (01) ==
LOC: BARWHC3 13:25
PROVIDERS: ATTEND Surgery
DX: Z09 Encounter for follow-up examination after completed treatment for conditions other than malignant neoplasm (principal); R13.10 Dysphagia, unspecified; J44.9 Chronic obstructive pulmonary disease, unspecified; M79.7 Fibromyalgia; E78.5 Hyperlipidemia, unspecified; I10 Essential (primary) hypertension; Z98.84 Bariatric surgery status; Z87.891 Personal history of nicotine dependence
CPT/HCPCS: 36415; 80053; 85025; 99211